=== PATIENT | female | born 1970 | race Caucasian/White ===

== ENCOUNTER 2018-07-31 16:25 | Emergency (ER) | payer MEDICAID ==
[2018-07-31] MEDS ORDERED: HYDROcod/ACETAM 5/325 MG TABLET PO STA (18:04)
[2018-07-31] MEDS ORDERED: CYCLOBENZAPRINE 10 MG TABLET PO STA (18:04)
[2018-07-31] MEDS ORDERED: DEXAMETHASONE 10 MG/ML VIAL PO STA (18:04)
--- NOTE | 2018-07-31 18:07 | ED Physician Documentation ---
History of Present Illness - Stated complaint Stated Complaint: EAR/NECK/JAW PX - Chief complaint Chief Complaint: Heent - History obtained from History obtained from: Patient - History of Present Illness Timing: Other (4 months) Pain level max: 9 Pain level now: 9 Improved by: rest Worsened by: movement - Additonal information Additional information: Patient is a 48-year-old female with a history of TMJ who has had increasing pain over the past 4 months. Is not using a night clerk. Recently moved to the [place] but has not yet seen a PCP or dentist. She is taking Motrin at home but the pain has increased. No fevers. No vomiting. Worse with eating and movement. Better with rest Review of Systems Constitutional: denies: Fever, Chills Ears: denies: Ear pain Nose: denies: Rhinorrhea / runny nose, Congestion Throat: denies: Sore throat Cardiac: denies: Chest pain / pressure Respiratory: denies: Cough GI: denies: Abdominal Pain, Nausea, Vomiting, Diarrhea Skin: denies: Rash Musculoskeletal: denies: Neck pain, Back pain Neurologic: denies: Headache PD PAST MEDICAL HISTORY - Past Medical History Past Medical History: Yes HEENT: Other (TMJ) - Present Medications Home Medications: Ambulatory Orders Medication Instructions Recorded Confirmed Cyclobenzaprine [Flexeril] 10 mg PO TID PRN #20 tablet 07/31/18 Hydrocodone/Acetaminophen 1 - 2 each PO Q6H PRN #14 tablet 07/31/18 [Hydrocodon-Acetaminophen 5-325] Meloxicam [Mobic] 15 mg PO DAILY PRN #20 tablet 07/31/18 predniSONE [Deltasone] 10 mg PO [id number] #42 tab 07/31/18 - Allergies Allergies/Adverse Reactions: Allergies Allergy/AdvReac Type Severity Reaction Status Date / Time morphine Allergy Anaphylaxis Verified 07/31/18 16:48 - Living Situation Living Situation: reports: With family Living Arrangement: reports: At home - Social History Does the pt have substance abuse?: Yes Substance Use and Type: Marijuana - Family History Family history: reports: Non contributory PD ED PE NORMAL - Vitals Vital signs reviewed: Yes - General General: Alert and oriented X 3, No acute distress - HEENT HEENT: Moist mucous membranes, Dentition benign, Other (Tender palpation over the right TMJ joint. Crepitus with movement. There is swelling over the joint.) - Neck Neck: Supple, no meningeal sign - Cardiac Cardiac: RRR, Strong equal pulses - Respiratory Respiratory: No respiratory distress, Clear bilaterally - Derm Derm: Warm and dry - Neuro Neuro: Alert and oriented X 3 Results - Vitals Vitals: Vital Signs - 24 hr 07/31/18 07/31/18 16:40 18:31 Temperature 36 C L 36.9 C Heart Rate 62 81 Respiratory 16 12 Rate Blood Pressure 131/82 H 140/89 H O2 Saturation 97 97 Oxygen O2 Source Room air PD MEDICAL DECISION MAKING - ED course Complexity details: considered differential, d/w patient ED course: Patient is a 48-year-old female with TMJ syndrome. Recommend that she wear a night clerk at night to help with teeth grinding. Also prescribe a small amount of pain medication and a muscle relaxant for her jaw for the next few days. We will have her follow-up with her doctor for further care. Patient counseled regarding signs and symptoms for which I believe and urgent re-evaluation would be necessary. Patient with good understanding of and agreement to plan and is comfortable going home at this time This document was made in part using voice recognition software. While efforts are made to proofread this document, sound alike and grammatical errors may occur. Departure - Departure Disposition: 01 Home, Self Care Clinical Impression: TMJ syndrome Condition: Good Instructions: ED TMJ Syndrome Follow-Up: VAHID OLIVAS ARNP [Primary Care Provider] - Within 1 week Prescriptions: Cyclobenzaprine [Flexeril] 10 mg PO TID PRN #20 tablet PRN Reason: Spasms Hydrocodone/Acetaminophen [Hydrocodon-Acetaminophen 5-325] 1 - 2 each PO Q6H PRN #14 tablet PRN Reason: pain Meloxicam [Mobic] 15 mg PO DAILY PRN #20 tablet PRN Reason: pain predniSONE [Deltasone] 10 mg PO [id number] #42 tab Comments: Return if you worsen. Take the medications as prescribed. You should also obtain a night clerk to wear at night as this will help to prevent the grinding of the teeth and prevent the spasming of your muscles. Follow-up with the dentist for further evaluation Do not drink alcohol or drive while on narcotic pain medicine. Note that many narcotic pain relievers also contain tylenol/acetaminophen. Please ensure that your total dose of acetaminophen from all sources does not exceed 3 grams (3000mg) per day. You may constipated on this medication, take a stool softener such as "Colace" twice a day while you are on it. Also recommend a [id number] laxative such as senna or MiraLAX any day that you do not have a bowel movement. If you received narcotic pain medication in the emergency department, do not drive or operate machinery for the next 24 hours. Discharge Date/Time: 07/31/18 18:35
[2018-07-31 18:33] VITALS: BP 140/89
== END 2018-07-31 18:35 | disposition home or self-care (01) ==
LOC: ED 16:25
DX: M26.609 Unspecified temporomandibular joint disorder, unspecified side (principal)
CPT/HCPCS: 99283; A9270

== ENCOUNTER 2018-08-24 13:36 | Emergency (ER) | payer MEDICAID ==
[2018-08-24 14:03] VITALS: BP 120/75
--- NOTE | 2018-08-24 14:51 | ED Physician Documentation ---
PD HPI HEENT - Stated complaint Stated Complaint: R JAW PAIN - Chief complaint Chief Complaint: Heent - History obtained from History obtained from: Patient - History of Present Illness Timing - onset: How many days ago (2-3) Timing - duration: Days (2-3) Timing - details: Gradual onset, Still present Location: Right ear, Other (right TMJ area, side of face, around ear. Has red area that is tender behind the right ear.) Associated symptoms: Congestion. No: Fever, Facial swelling Recently seen: Emergency Dept (month or so ago, with similar. symptoms recurrent.) Review of Systems Constitutional: denies: Fever, Chills Eyes: denies: Decreased vision, Photophobia Nose: denies: Rhinorrhea / runny nose, Congestion Throat: denies: Sore throat Respiratory: denies: Cough Skin: denies: Rash, Lesions Neurologic: denies: Focal weakness, Numbness, Confused, Altered mental status PD PAST MEDICAL HISTORY - Past Medical History Cardiovascular: None Respiratory: None Neuro: None Endocrine/Autoimmune: None GI: None PROFESSOR OF PRACTICE: None : None HEENT: Other (TMJ) Psych: None Musculoskeletal: Other Derm: None - Past Surgical History Past Surgical History: Yes Ortho: Other - Present Medications Home Medications: Ambulatory Orders Medication Instructions Recorded Confirmed Cyclobenzaprine [Flexeril] 10 mg PO TID PRN #20 tablet 07/31/18 Hydrocodone/Acetaminophen 1 - 2 each PO Q6H PRN #14 tablet 07/31/18 [Hydrocodon-Acetaminophen 5-325] Meloxicam [Mobic] 15 mg PO DAILY PRN #20 tablet 07/31/18 predniSONE [Deltasone] 10 mg PO [id number] #42 tab 07/31/18 Acyclovir 400 mg PO 5XD #25 tablet 08/24/18 Cyclobenzaprine [Flexeril] 10 mg PO TID PRN #20 tablet 08/24/18 Dexamethasone [Decadron] 4 mg PO DAILY #5 tablet 08/24/18 Hydrocodone/Acetaminophen [[place] 1 each PO Q6H PRN #15 tablet 08/24/18 5-325 Tablet] - Allergies Allergies/Adverse Reactions: Allergies Allergy/AdvReac Type Severity Reaction Status Date / Time morphine Allergy Anaphylaxis Verified 08/24/18 14:03 - Social History Does the pt smoke?: No Smoking Status: Never smoker Does the pt drink ETOH?: No Does the pt have substance abuse?: Yes - Immunizations Immunizations are current?: Yes - POLST Patient has POLST: No PD ED PE NORMAL - Vitals Vital signs reviewed: Yes - General General: Alert and oriented X 3, No acute distress, Well developed/nourished - HEENT HEENT: PERRL, EOMI, Ears normal, Moist mucous membranes, Pharynx benign, Dentition benign, Other (has tenderness of the face and skin around the cheek, side of face, and to the area around the ear. No rash nor sores. The TMJ is tender without swelling. ) - Neck Neck: Supple, no meningeal sign, No adenopathy - Cardiac Cardiac: RRR, No murmur - Respiratory Respiratory: Clear bilaterally - Derm Derm: Normal color, Warm and dry, No rash Results - Vitals Vitals: Oxygen O2 Source Room air PD MEDICAL DECISION MAKING - ED course Complexity details: considered differential (some symptoms to suggest early shingles, though she says she had the shingles shot. ), d/w patient Departure - Departure Disposition: 01 Home, Self Care Clinical Impression: Facial pain, acute Condition: Stable Record reviewed to determine appropriate education?: Yes Instructions: ED TMJ Syndrome Follow-Up: VAHID OLIVAS ARNP [Primary Care Provider] - Prescriptions: Acyclovir 400 mg PO 5XD #25 tablet Cyclobenzaprine [Flexeril] 10 mg PO TID PRN #20 tablet PRN Reason: Spasms Dexamethasone [Decadron] 4 mg PO DAILY #5 tablet Hydrocodone/Acetaminophen [[place] 5-325 Tablet] 1 each PO Q6H PRN #15 tablet PRN Reason: Pain Comments: Your TMJ is certainly tender and so that can be giving a lot of the pain and have you treated with anti-inflammatory as well as muscle relaxant and to that add Tylenol or hydrocodone as needed for the pain. He also have skin sensitivity and pain over the side of the face and around the ear and neck with the redness area behind the ear has me concern for early shingles in addition and I would have you take acyclovir antiviral and see how the course goes over the next couple of days. In particular see if you develop more red spots or any blistering. Discharge Date/Time: 08/24/18 15:27
[2018-08-24] MEDS ORDERED: HYDROcod/ACETAM 5/325 MG TABLET PO STA (15:14)
[2018-08-24] MEDS ORDERED: CYCLOBENZAPRINE 10 MG TABLET PO STA (15:14)
[2018-08-24] MEDS ORDERED: DEXAMETHASONE 10 MG/ML VIAL PO STA (15:14)
== END 2018-08-24 15:27 | disposition home or self-care (01) ==
LOC: ED 13:36
DX: M26.621 Arthralgia of right temporomandibular joint (principal)
CPT/HCPCS: 99283; A9270

== ENCOUNTER 2018-10-22 11:42 | Emergency (ER) | payer MEDICAID ==
--- NOTE | 2018-10-22 12:39 | ED Physician Documentation ---
PD HPI URI - Stated complaint Stated Complaint: CONGESTION/GREEN MUCUS - Chief complaint Chief Complaint: Resp - History obtained from History obtained from: Patient - History of Present Illness Timing - onset: How many weeks ago (1 week or more of greenish sinus drainage and frontal/right maxillary pressure. Has pain at right TMJ area. Now also with cough productive, with feeling of chest tightness and wheezing. Dyspnea earlier today, improved with MDI but is now out of MDI. Had that Rx with a pneumonia last month.) Timing duration: Weeks (1-2) Timing details: Gradual onset, Still present Associated symptoms: Nasal congestion, Sinus pain, Productive cough. No: Fever Contributing factors: No: Sick contact Recently seen: Clinic (last month and Dx with pneumonia, improved with meds, and then developed sinus symptoms and now cough again.) Review of Systems Constitutional: reports: Myalgias. denies: Fever, Chills Ears: reports: Ear pain (at right TMJ area and not ear canal) Nose: reports: Congestion, Sinus pressure / pain. 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 : None HEENT: Other Psych: None Musculoskeletal: Other Derm: None - Past Surgical History Past Surgical History: Yes Ortho: Other - Present Medications Home Medications: Ambulatory Orders Medication Instructions Recorded Confirmed Cyclobenzaprine [Flexeril] 10 mg PO TID PRN #20 tablet 07/31/18 Meloxicam [Mobic] 15 mg PO DAILY PRN #20 tablet 07/31/18 Lidocaine Viscous 2% [Xylocaine 2 drops RIGHTEAR Q4H PRN #15 ml 10/05/18 Viscous 2%] Albuterol Sulf [Ventolin Hfa 2 - 3 puffs INH Q4HR PRN #1 inhaler 10/22/18 Inhaler] Dexamethasone [Decadron] 4 mg PO DAILY #5 tablet 10/22/18 Doxycycline Hyclate 100 mg PO BID #20 capsule 10/22/18 - Allergies Allergies/Adverse Reactions: Allergies Allergy/AdvReac Type Severity Reaction Status Date / Time morphine Allergy Anaphylaxis Verified 10/22/18 12:05 - Social History Does the pt smoke?: No Smoking Status: Never smoker Does the pt drink ETOH?: No Does the pt have substance abuse?: Yes - Immunizations Immunizations are current?: Yes - POLST Patient has POLST: No PD ED PE NORMAL - Vitals Vital signs reviewed: Yes - General General: Alert and oriented X 3, No acute distress, Well developed/nourished - HEENT HEENT: Ears normal, Moist mucous membranes, Pharynx benign - Neck Neck: Supple, no meningeal sign, No adenopathy - Cardiac Cardiac: RRR, No murmur - Respiratory Respiratory: No: Clear bilaterally (some scattered central wheezing. no coarse sounds. ) - Abdomen Abdomen: Soft, Non tender - Derm Derm: Normal color, Warm and dry, No rash - Neuro Neuro: Alert and oriented X 3, No motor deficit, Normal speech Results - Vitals Vitals: Vital Signs - 24 hr 10/22/18 10/22/18 13:20 13:47 Heart Rate 97 103 H Respiratory 18 18 Rate Blood Pressure 130/78 O2 Saturation 99 Oxygen O2 Source Room air - Rads (name of study) chest xray Radiology: Prelim report reviewed (no infiltrates), EMP read contemporaneously, See rad report PD MEDICAL DECISION MAKING - ED course Complexity details: considered differential (consider viral, but has had progressive sinus drainage with pressure, and now productive cough. So hard to say not bacterial. ), d/w patient Departure - Departure Disposition: 01 Home, Self Care Clinical Impression: Acute sinusitis Qualifiers: Sinusitis location: frontal Recurrence: non-recurrent Qualified Code(s): J01.10 - Acute frontal sinusitis, unspecified Acute bronchitis Qualifiers: Bronchitis organism: unspecified organism Qualified Code(s): J20.9 - Acute bronchitis, unspecified Condition: Stable Record reviewed to determine appropriate education?: Yes Instructions: ED Bronchitis Asthmatic, ED Sinusitis Abx Tx Follow-Up: VAHID OLIVAS ARNP [Primary Care Provider] - Prescriptions: Albuterol Sulf [Ventolin Hfa Inhaler] 2 - 3 puffs INH Q4HR PRN #1 inhaler PRN Reason: Shortness Of Air/Wheezing Dexamethasone [Decadron] 4 mg PO DAILY #5 tablet Doxycycline Hyclate 100 mg PO BID #20 capsule Comments: Your chest x-ray appears normal without any pneumonia. Presume he have a bronchial as well as sinus infection. This can likely still be viral or inflammatory but we can treat it as a bacterial infection. Use doxycycline twice daily as directed. Decadron steroid for inflammation will help decrease symptoms as well. Use the albuterol inhaler 2-3 puffs 4 times a day for the next 7-10 days and extra times as needed. Stay well-hydrated. Continue other usual medicines. Recheck if not improving over the next few days. Discharge Date/Time: 10/22/18 13:47
[2018-10-22] MEDS ORDERED: ALBUTEROL NEB 2.5 MG/3 ML INH STA (13:04)
[2018-10-22] MEDS ORDERED: DEXAMETHASONE 10 MG/ML VIAL PO STA (13:05)
[2018-10-22] MEDS ORDERED: DOXYCYCLINE 100 MG TABLET PO STA (13:05)
--- NOTE | 2018-10-22 13:14 | XRAY Report ---
Reason: cough Procedure Date: 10/22/2018 Accession Number: [id number] / [id number] Procedure: XR - Chest 2 View X-Ray CPT Code: 46142 FULL RESULT: EXAM: CHEST RADIOGRAPHY EXAM DATE: 10/22/2018 12:55 PM. CLINICAL HISTORY: Cough. COMPARISON: None. TECHNIQUE: 2 views. FINDINGS: Lungs/Pleura: No focal opacities evident. No pleural effusion. No pneumothorax. Normal volumes. Mediastinum: Heart and mediastinal contours are unremarkable. Other: None. IMPRESSION: No acute cardiopulmonary abnormality. RADIA
[2018-10-22 13:49] VITALS: BP 130/78
== END 2018-10-22 13:47 | disposition home or self-care (01) ==
LOC: ED 11:42
DX: J01.10 Acute frontal sinusitis, unspecified (principal); J02.9 Acute pharyngitis, unspecified
CPT/HCPCS: 71046; 94640; 99283; A9270

== ENCOUNTER 2019-01-19 09:20 | Outpatient (CLI) | payer MEDICAID ==
--- NOTE | 2019-01-19 15:04 | XRAY Report ---
Reason: NECK PAIN,CHRONIC Procedure Date: 01/19/2019 Accession Number: [id number] / [id number] Procedure: XR - Cervical Spine 2 View CPT Code: FULL RESULT: EXAM: CERVICAL SPINE RADIOGRAPHY EXAM DATE: 01/19/2019 09:49 AM. CLINICAL HISTORY: Neck pain, chronic. COMPARISONS: None. TECHNIQUE: 3 views. FINDINGS: Alignment: Straightening of the normal cervical lordosis. No spondylolisthesis or scoliosis. Bones: The cervical vertebral bodies and posterior elements are well visualized from the skull base through C7-T1. No fractures or bone lesions. Disks: Mild degenerative disk disease pronounced at C5-C7 with mild marginal osteophytosis. Facets: Mild facet arthropathy predominantly in the lower cervical spine. Soft Tissues: Normal. No prevertebral soft tissue swelling. The visualized lung apices are clear. IMPRESSION: Mild degenerative changes. Straightening of the normal cervical lordosis is possibly positional. RADIA
== END 2019-01-19 09:21 | disposition home or self-care (01) ==
LOC: DI 09:20
PROVIDERS: ATTEND Registered Nurse
DX: M50.322 Other cervical disc degeneration at C5-C6 level (principal); M25.78 Osteophyte, vertebrae
CPT/HCPCS: 72040

== ENCOUNTER 2019-03-11 15:17 | Outpatient (CLI) | payer MEDICAID ==
--- NOTE | 2019-03-12 13:54 | MRI Report ---
Reason: SHOULDER PAIN, RIGHT Procedure Date: 03/11/2019 Accession Number: [id number] / [id number] Procedure: MRI - Shoulder RT W/O CPT Code: FULL RESULT: EXAM: RIGHT SHOULDER MRI WITHOUT CONTRAST EXAM DATE: 03/11/2019 04:11 PM. CLINICAL HISTORY: Right shoulder pain and limited range of motion. COMPARISON: SHOULDER 3 VIEW RT 03/04/2019 8:42 AM. TECHNIQUE: Multiplanar, multisequence T1-weighted and fluid-sensitive sequences of the shoulder without contrast. Other: None. FINDINGS: Acromioclavicular Region: The acromion is type II. Cortical irregularity, subcortical cyst, and marrow edema at the distal end of the clavicle and medial aspect of the acromion. The inferior aspect of the AC joint indents the bursal surface of the supraspinatus muscle tendon unit. The coracoacromial and coracoclavicular ligaments are intact. No subacromial/subdeltoid bursal fluid. Glenohumeral Region: No subluxation. No effusion or loose bodies. The articular cartilage is unremarkable. The glenohumeral ligaments and joint capsule are unremarkable. Bone Marrow: No acute fracture or bone lesions. Labrum: The labrum is unremarkable on this nonarthrographic study. Musculature/Rotator Cuff: There is supraspinatus tendinosis. There is an approximately 0.4 cm AP by 1.1 cm proximal to distal low-grade partial-thickness intrasubstance insertional tear at the distal end of the infraspinatus tendon. Teres minor and subscapularis tendons are unremarkable. No edema or fatty atrophy. Biceps Tendon: The long head of the biceps tendon and biceps teresa are intact. Other: The subcutaneous tissues are unremarkable. IMPRESSION: 1. Supraspinatus tendinosis. Low-grade partial-thickness intrasubstance insertional tear at the distal end of the subscapularis tendon. 2. Moderate acromioclavicular joint osteoarthritis. RADIA
== END 2019-03-11 15:18 | disposition home or self-care (01) ==
LOC: DI 15:17
PROVIDERS: ATTEND Orthopaedic Surgery Sports Medicine
DX: M75.101 Unspecified rotator cuff tear or rupture of right shoulder, not specified as traumatic (principal); M19.011 Primary osteoarthritis, right shoulder

== ENCOUNTER 2019-03-24 09:05 | Outpatient (CLI) | payer MEDICAID ==
[2019-03-24 18:17] LABS: THYROID STIMULATING HORMONE 0.78 uIU/mL (0.34-5.60)
[2019-03-24 18:19] LABS: FREE T4 (FREE THYROXINE) 0.87 ng/dL (0.58-1.64)
== END 2019-03-24 09:06 | disposition home or self-care (01) ==
LOC: LAB.F 09:05
PROVIDERS: ATTEND Physician Assistant Medical
DX: R53.83 Other fatigue (principal); F41.8 Other specified anxiety disorders
CPT/HCPCS: 36415; 84439; 84443; 84481; 86376; 86800

== ENCOUNTER 2019-04-09 10:06 | Outpatient (CLI) | payer MEDICAID ==
[2019-04-12 13:35] LABS: ANA SCREEN NEGATIVE (NEGATIVE)
== END 2019-04-09 10:07 | disposition home or self-care (01) ==
LOC: LAB.F 10:06
PROVIDERS: ATTEND Naturopath
DX: M79.10 Myalgia, unspecified site (principal)
CPT/HCPCS: 36415; 83090; 85651; 86038; 86141

== ENCOUNTER 2019-04-13 08:50 | Outpatient (CLI) | payer MEDICAID ==
--- NOTE | 2019-04-13 14:34 | DEXA Report ---
Reason: MULTIPLE FRACTURES OR RIBS,UNSPECIFIED SIDE,SUBSEQ Procedure Date: 04/13/2019 Accession Number: [id number] / [id number] Procedure: DEX - Dexa Spine and/or Hip CPT Code: FULL RESULT: EXAM: Dexa Spine and/or Hip DATE: 04/13/2019 9:25 AM CLINICAL HISTORY: MULTIPLE FRACTURES OR RIBS,UNSPECIFIED SIDE,SUBSEQ TECHNIQUE: Dual energy x-ray absorptiometry (DXA) was performed on a [employer] System. Regions measured are the AP Spine, femoral neck, and if needed forearm. COMPARISON: None. In accordance with the International Society for Clinical Densitometry (ISCD) guidelines, data from previous exams may be reanalyzed using current recommendations and techniques. This is done to allow a more accurate basis for comparison with the current study. FINDINGS: The data for the lumbar spine is as follows: BMD (g/cm/cm) T-SCORE Z-SCORE REGION L1 0.964 -1.4 -1.0 L2 1.125 -0.6 -0.2 L3 1.212 0.1 0.5 L4 1.081 -1.0 -0.6 TOTAL 1.101 -0.7 -0.3 NOTE: All evaluable vertebrae are used for classification The data for the hip is as follows: BMD (g/cm/cm) T-SCORE Z-SCORE REGION Neck 0.906 -0.9 -0.2 TOTAL 0.865 -1.1 -0.6 NOTE: The femoral neck or total proximal femur, whichever is lowest, is used for classification. IMPRESSION: THE WHO CLASSIFICATION BASED ON THE INTERNATIONAL REFERENCE STANDARD IS OSTEOPENIA, REFERENCE TOTAL LEFT HIP. THE FRACTURE RISK IS INCREASED. RECOMMENDATION: Patients with diagnosis of osteoporosis or osteopenia should have regular bone mineral density assessment. For those eligible for Medicare, routine testing is allowed once every 2 years. Testing frequency can be increased for patients who have rapidly progressing disease or for those who are receiving medical therapy to restore bone mass. COMMENT: World Health Organization (WHO) definitions for osteoporosis and osteopenia: NORMAL BMD: T-score at -1.0 or higher, fracture risk is low OSTEOPENIA BMD: T-score between -1.0 and -2.5, fracture risk is increased. OSTEOPOROSIS BMD: T-score at -2.5 or lower, fracture risk is high. National Osteoporosis Foundation recommends: 1. Obtain adequate dietary calcium (at least 1200 mg per day) and vitamin D (400-800 international units per day). 2. Participate, as appropriate, in regular weightbearing and muscle-strengthening exercise. 3. Avoid tobacco use and reduce alcohol and caffeine intake. 4. For more detailed information see the website at www.NOF.org.
== END 2019-04-13 08:51 | disposition home or self-care (01) ==
LOC: DI 08:50
PROVIDERS: ATTEND Physician Assistant Medical
DX: M85.88 Other specified disorders of bone density and structure, other site (principal)
CPT/HCPCS: 77080

== ENCOUNTER 2019-05-31 06:17 | Day surgery (SDC) | payer MEDICAID ==
[2019-05-31] MEDS ORDERED: CEFAZOLIN SODIUM IN 0.9 % NACL 2 GM/100 ML BAG IV ONE (06:31)
[2019-05-31 06:57] LABS: HCG UR QUAL NEGATIVE
[2019-05-31] MEDS ORDERED: LACTATED RINGERS 1,000 ML IV ONE ×3 (07:02→12:30)
[2019-05-31] MEDS ORDERED: BACITRACIN OINT TOP ONE (07:12)
[2019-05-31] MEDS ORDERED: LIDOCAINE MPF 2%-EPI 1:200000 20 ML VIAL ONE (07:13)
[2019-05-31] MEDS ORDERED: CHLORHEXIDINE GLUCONATE 15 ML UDC PO ONE ×2 (07:17→09:52)
[2019-05-31] MEDS ORDERED: DEXAMETHASONE 4 MG/ML VIAL ONE (07:18)
[2019-05-31] MEDS ORDERED: OXYMETAZOLINE HCL 100 SPRAYS BOTTLE NAS ONE (07:18)
--- NOTE | 2019-05-31 07:30 | ANESTHESIA ---
Pre-Anesthesia VS, & Labs - Diagnosis Right jaw internal derangement - Procedure ORIF right jaw Vital Signs: Temp Pulse Resp BP Pulse Ox 36.3 C L 79 16 115/70 99 05/31/19 06:36 05/31/19 06:36 05/31/19 06:36 05/31/19 06:36 05/31/19 06:36 Height 5 ft 7 in Weight (kg) 63.5 kg Body Mass Index 19.8 - NPO Other (8 oz coffee at 0500, 4 oz water at 0600) - Is Patient ?: No - Lab Results Lab results reviewed: Yes Home Medications and Allergies Home Medications: Ambulatory Orders Albuterol Sulfate [Proair Hfa Inhaler] 1 - 2 puffs INH Q4H PRN 05/26/19 Albuterol Sulfate [Proair Hfa Inhaler] 1 - 2 puffs INH Q4H PRN 05/26/19 Allergies/Adverse Reactions: Allergies Allergy/AdvReac Type Severity Reaction Status Date / Time morphine Allergy Anaphylaxis Verified 10/22/18 12:05 Anes History & Medical History - Anesthetic History Anesthesia Complications: reports: No previous complications Family history of Anesthesia Complications: Denies Family history of Malignant Hyperthermia: Denies - Medical History Cardiovascular: reports: None, Arrhythmia Pulmonary: reports: Pneumonia, Other Gastrointestinal: reports: None, Other (hx nausea/vomiting) Urinary: reports: None Neuro: reports: None Musculoskeletal: reports: Osteoarthritis, Other Endocrine/Autoimmune: reports: None Blood Disorders: reports: None Skin: reports: None Smoking Status: Never smoker Psychosocial: reports: No issues indicated - Surgical History Orthopedic: Arthroscopic surgery, Other Exam General: Alert, Oriented x3, Cooperative Dental: WNL Mouth Opening: Greater than 4 Fingerbreadths Neck Mobility: Normal Mallampati classification: I Thyromental Distance: greater than 6 cm Respiratory: Lungs clear Cardiovascular: Regular rate Neurological: Normal speech Mental/Cognitive Status: Alert/Oriented X3 Cognitive Status: Within normal limits Plan Anesthesia Type: General Consent for Procedure(s) Verified and Reviewed: Yes Code Status: Attempt Resuscitation ASA classification: 2-Mild systemic disease Is this case an emergency?: No
[2019-05-31] MEDS ORDERED: FLUOCINONIDE 0.05% CREAM 15 GM TUBE TOP ONE (09:30)
[2019-05-31] MEDS ORDERED: DEXAMETHASONE 4 MG/ML VIAL IVP ONE (09:44)
[2019-05-31] MEDS ORDERED: LIDOCAINE-MPF 2% 5 ML VIAL IM ONE (09:44)
[2019-05-31] MEDS ORDERED: fentaNYL 250 MCG/5 ML VIAL IVP ONE (09:44)
[2019-05-31] MEDS ORDERED: KETOROLAC 30 MG/ML VIAL IVP ONE (09:44)
[2019-05-31] MEDS ORDERED: ROCURONIUM 50 MG/5 ML VIAL IVP ONE (09:44)
[2019-05-31] MEDS ORDERED: ACETAMINOPHEN 1,000 MG/100 ML 100 ML IV ONE (09:44)
[2019-05-31] MEDS ORDERED: ONDANSETRON 4 MG/2 ML VIAL IVP ONE (09:44)
[2019-05-31] MEDS ORDERED: MIDAZOLAM 2 MG/2 ML VIAL IVP ONE (09:44)
[2019-05-31] MEDS ORDERED: PROPOFOL 200 MG/20 ML VIAL IVP ONE (09:44)
[2019-05-31] MEDS ORDERED: LIDOCAINE MPF 2%-EPI 1:200000 20 ML VIAL SUBQ ONE ×2 (09:52)
[2019-05-31] MEDS: fentaNYL 100 MCG/2 ML VIAL ONE ×2 (12:00→12:05)
[2019-05-31] MEDS: HYDROmorphone 0.5 MG/0.5 ML SYRINGE ONE ×2 (12:19→12:24)
[2019-05-31] MEDS ORDERED: HYDROmorphone 0.5 MG/0.5 ML SYRINGE ONE ×2 (12:36→13:08)
[2019-05-31] MEDS ORDERED: HYDROmorphone 1 MG/ML CARPUJECT IVP PRN (12:52)
[2019-05-31] MEDS ORDERED: oxyCODONE 10 MG/0.5 ML SYRINGE PO PRN (12:52)
[2019-05-31] MEDS ORDERED: ONDANSETRON 4 MG/2 ML VIAL ONE (13:51)
[2019-05-31 14:21] VITALS: BP 121/79
--- NOTE | 2019-05-31 15:57 | OPERATIVE REPORT ---
DATE OF SERVICE: 05/31/2019 Physician: Robi Serrano DDS PROCEDURE PERFORMED: Modified condylotomy of the right mandibular condyle with placement of arch bars. PREOPERATIVE DIAGNOSES 1. Right mandible pain. 2. 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 3. Capsulitis of the right temporomandibular joint. POSTOPERATIVE DIAGNOSES 1. Right mandible pain. 2. 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 3. Capsulitis of the right temporomandibular joint. PRIMARY SURGEON: Robi Serrano DDS SCHOOL PRINCIPAL: [employer]. ANESTHESIA TYPE: General anesthesia via nasoendotracheal intubation. ESTIMATED BLOOD LOSS: 40 mL. COMPLICATIONS: None. IMPLANTS: Superficial implants were placed only. Biomet implants were used. Hybrid IMF bars x2 were placed and 9 IMF screws were placed. DRAINS, PACKS, CATHETERS: None. IV FLUIDS: Per anesthesia records. INDICATIONS FOR PROCEDURE: Patient is a 49-year-old female who has a longstanding temporomandibular joint pain. The pain has been causing difficulty eating and difficulty speaking. She presented to my office for clinical and radiographic evaluation which was consistent with right temporomandibular joint internal derangement and capsulitis. It was decided that a modified condylotomy was indicated. The risks, benefits and alternatives of this plan were discussed with Patient including pain, swelling, bleeding, infection, worsening of her TMJ symptoms, numbness in the right V3 distribution, scarring, malocclusion, nonunion, hardware failure, damage to the teeth, need for further surgery. Adequate time was given to answer all questions and informed consent was obtained. DESCRIPTION OF PROCEDURE: Patient was brought to the main operating room and placed in a supine position on the operating table. General anesthesia was induced by the anesthesia team, and the airway was secured with an nasoendotracheal tube. All pressure points were padded and checked. Lacri-Lube was placed in the eyes. The eyes were protected with Tegaderms. Patient was prepped and draped in the standard sterile fashion for an intraoral surgical procedure. The nasal LEO was secured to the forehead in the standard fashion. A formal timeout was executed. Local anesthesia was achieved with 2% lidocaine with 1:200,000 epinephrine x7 mL The attention was directed to the maxilla. A throat pack was placed. A maxillary hybrid arch bar was fashioned to the maxilla and then secured into place with 5 hybrid IMF screws. Attention was directed to the mandible. A hybrid arch bar was fashion to the mandible and secured in place with 4 hybrid IMF screws. Attention was then directed to the right mandibular ramus. A bite block was placed. Using a 15 blade, an incision was made along the anterior aspect of the right mandibular ramus down to bone. Electrocautery was used for hemostasis. A #9 periosteal elevator was used to perform a subperiosteal dissection on the lateral aspect of the mandible, exposing the entire lateral ramus up to the coronoid notch and down to the inferior border of the mandible. A nerve hook was used to verify the position of the coronoid notch. Mandibular ramus retractor was placed in the coronoid notch, and good visibility of the lateral aspect of the mandible was achieved. The mandible was very convex and because of this the posterior border of the mandible was never able to be visualized. Instead of visualizing it, it was necessary to use a nerve hook to feel the posterior border of the mandible and feel where it dropped off and then estimate the desired osteotomy position based on this. An oscillating saw was used to make an osteotomy from the coronoid notch down to the inferior border of the mandible. The osteotomy was made with great care to protect the inferior alveolar nerve by staying far enough posterior; also, with care taken to avoid stepping off the posterior aspect of the mandible. Once this was achieved, the proximal segment was found to be mobile. The proximal segment was then loosened further by using a J stripper and a #1 periosteal elevator to remove the entire masseter muscle from the segment and remove about half of the medial pterygoid muscle from the segment. Sag of the condyle was appreciated. 5 mm of the inferior tip of the proximal segment was removed with rongeur, and the bone was smoothed with a bone file. The mobility of the segment was again verified, and patient's occlusion was found to be unstable. This site was irrigated copiously. The incision was closed with 4-0 Vicryl suture, interrupted and running. Patient's mouth was cleansed and suctioned. The throat pack was removed. An orogastric tube was passed. Patient's occlusion was reestablished, and elastics were used to hold patient in good occlusion. Care of Patient was then returned to the anesthesia team. Patient was extubated. She was found to be in stable condition, and she was left in the PACU in stable condition. TD: 05/31/2019 12:02 MTDD
== END 2019-05-31 06:18 | disposition home or self-care (01) ==
LOC: SDS 06:17
PROVIDERS: ATTEND Dentist Oral and Maxillofacial Surgery
PROC: 0NST04Z Reposition Right Mandible with Internal Fixation Device, Open Approach (ICD-10-PCS; principal; 2019-05-31 07:30)
DX: M26.601 Right temporomandibular joint disorder, unspecified (principal); M77.9 Enthesopathy, unspecified; Z86.79 Personal history of other diseases of the circulatory system
CPT/HCPCS: 21110; 21193; 81025; A9270; C1713; J0131; J0690; J1170; J3010; J3490; J7120

== ENCOUNTER 2020-06-15 09:59 | Observation (INO) | payer MEDICAID ==
[2020-06-15] MEDS ORDERED: SODIUM CHLORIDE 0.9% 1,000 ML IV STA (10:21)
[2020-06-15] MEDS ORDERED: ONDANSETRON 4 MG/2 ML VIAL IVP STA ×2 (10:21→13:40)
[2020-06-15] MEDS ORDERED: fentaNYL 100 MCG/2 ML VIAL IVP STA (10:22)
[2020-06-15 10:53] LABS: BASOPHILS % (AUTO) 0.3 %; EOSINOPHILS % (AUTO) 0.1 %; HGB - HEMOGLOBIN 14.8 g/dL (12.0-16.0); LYMPHOCYTES # (AUTO) 0.8 10^3/uL (1.5-3.5); LYMPHOCYTES % (AUTO) 10.2 %; MEAN CORPUSCULAR HEMOGLOBIN 31.1 pg (27.0-31.0); MEAN CORPUSCULAR HGB CONC 34.2 g/dL (32.0-36.0); MEAN PLATELET VOLUME 10.2 fL (7.9-10.8); MONOCYTES # (AUTO) 0.3 10^3/uL (0.0-1.0); MONOCYTES % (AUTO) 3.4 %; NEUTROPHILS # (AUTO) 6.6 10^3/uL (1.5-6.6); NEUTROPHILS % (AUTO) 85.5 %; PLT - PLATELET COUNT 264 10^3/uL (130-450); RED BLOOD COUNT 4.76 10^6/uL (4.20-5.40); RED CELL DISTRIBUTION WIDTH 12.5 % (12.0-15.0); WHITE BLOOD COUNT 7.8 x10^3/uL (4.8-10.8)
[2020-06-15 11:01] LABS: INR 1.1 (0.8-1.2); PT - PROTHROMBIN TIME 12.1 secs (9.9-12.6)
[2020-06-15 11:08] LABS: ALBUMIN 4.5 g/dL (3.2-5.5); ALBUMIN/GLOBULIN RATIO 1.4 (1.0-2.2); BILIRUBIN,TOTAL 0.9 mg/dL (0.2-1.0); CALCIUM 9.5 mg/dL (8.5-10.3); CREATININE 0.7 mg/dL (0.4-1.0); TOTAL PROTEIN 7.8 g/dL (6.7-8.2)
[2020-06-15 11:14] LABS: BILIRUBIN,URINE NEGATIVE (NEGATIVE); GLUCOSE, URINE (UA) NEGATIVE (NEGATIVE); KETONES,URINE (UA) 40 mg/dL (NEGATIVE); LEUKOCYTE ESTERASE, URINE NEGATIVE (NEGATIVE); NITRITE,URINE NEGATIVE (NEGATIVE); OCCULT BLOOD,URINE NEGATIVE (NEGATIVE); PH,URINE >=9.0 PH (5.0-7.5); PROTEIN,URINE TRACE mg/dL (NEGATIVE); UROBILINOGEN,URINE 0.2 (NORMAL) E.U./dL (NORMAL)
[2020-06-15 11:16] LABS: CLARITY,URINE CLEAR (CLEAR)
[2020-06-15 11:17] LABS: HCG UR QUAL NEGATIVE
[2020-06-15] MEDS ORDERED: HYDROmorphone 1 MG/ML CARPUJECT IVP STA (12:01)
--- NOTE | 2020-06-15 13:09 | CT Report ---
PROCEDURE: Abdomen/Pelvis W INDICATIONS: abdominal pain CONTRAST: IV CONTRAST: Optiray 320 ml: 100 PO CONTRAST: *NO PO CONTRAST TECHNIQUE: After the administration of intravenous contrast, 5 mm thick sections acquired from the diaphragms to the symphysis. 5 mm thick coronal and sagittal reformats were acquired. For radiation dose reducti on, the following was used: automated exposure control, adjustment of mA and/or kV according to brenda ent size. COMPARISON: None. FINDINGS: Image quality: Excellent. ABDOMEN: Lung bases: Lung bases are clear. Heart size is normal. Solid organs: Liver is enlarged. The spleen is normal in size and enhancement. Gallbladder is unrem arkable Biliary system is non dilated. Pancreas enhances normally. No adrenal nodules. Kidneys de monstrate normal size and enhancement, without hydronephrosis. Peritoneum and bowel: There are mildly prominent fluid-filled loops of small bowel within the lower a bdomen. There is a prominent focus of stool within the cecum appearing somewhat masslike. There is eq ualization of the distal small bowel. No free fluid or air. Nodes and vessels: No retroperitoneal or mesenteric adenopathy by size criteria. Aorta and inferior vena cava are normal in size. Miscellaneous: No ventral hernias. PELVIS: Genitourinary: Bladder wall thickness is normal. Miscellaneous: No inguinal hernias or adenopathy. Bones: No suspicious bony lesions. No vertebral body compression fractures. IMPRESSION: 1. Masslike focus of stool within the cecum with fluid-filled dilation of the distal small bowel sugg estive of partial obstruction. Reviewed by: Elza Harrington MD on 06/15/2020 1:08 PM PDT Approved by: Elza Harrington MD on 06/15/2020 1:08 PM PDT Station ID: [id number]
--- NOTE | 2020-06-15 13:12 | ED Physician Documentation ---
History of Present Illness - Stated complaint Stated Complaint: VOMITING - Chief complaint Chief Complaint: Abd Pain - History obtained from History obtained from: Patient - Additonal information Additional information: Patient comes emergency department complaining of abdominal pain and vomiting that started last night. The patient states that she began to feel unwell prior, and that symptoms culminated in violent vomiting. She states she vomited on and off throughout the night and the morning and has been having waves of mid abdominal pain since. She denies any fevers or chills. No chest symptoms. No dysuria. No vaginal symptoms. The patient states that she has given 4 times vaginally. She is not had any abdominal surgeries. The patient states she has had a little bit of diarrhea, but not as much as she would expect for the amount of vomiting she is done. She also has noted that she really has not passed any gas to speak of today. No other complaints at this time. Review of Systems Ten Systems: 10 systems reviewed and negative Constitutional: reports: Reviewed and negative Eyes: reports: Reviewed and negative Ears: reports: Reviewed and negative Nose: reports: Reviewed and negative Throat: reports: Reviewed and negative Cardiac: reports: Reviewed and negative Respiratory: reports: Reviewed and negative GI: reports: Abdominal Pain, Nausea, Vomiting, Diarrhea : denies: Dysuria, Vaginal bleeding Skin: reports: Reviewed and negative Musculoskeletal: reports: Reviewed and negative Neurologic: reports: Reviewed and negative Psychiatric: reports: Reviewed and negative Endocrine: reports: Reviewed and negative Immunocompromised: reports: Reviewed and negative PD PAST MEDICAL HISTORY - Past Medical History Past Medical History: Yes Cardiovascular: None, Arrhythmia Respiratory: Pneumonia, Other Neuro: None Endocrine/Autoimmune: None GI: None, Other COLLETER: None : None HEENT: Other Psych: Depression, Anxiety Musculoskeletal: Osteoarthritis, Other Derm: None - Past Surgical History Past Surgical History: Yes Ortho: Arthroscopic surgery, Other - Present Medications Home Medications: Ambulatory Orders Medication Instructions Recorded Confirmed Cyclobenzaprine [Flexeril] 10 mg PO TID PRN #20 tablet 07/31/18 05/31/19 Meloxicam [Mobic] 15 mg PO DAILY PRN #20 tablet 07/31/18 05/31/19 Albuterol Sulfate [Proair Hfa 1 - 2 puffs INH Q4H PRN 05/26/19 05/31/19 Inhaler] - Allergies Allergies/Adverse Reactions: Allergies Allergy/AdvReac Type Severity Reaction Status Date / Time morphine Allergy Anaphylaxis Verified 10/22/18 12:05 - Social History Does the pt smoke?: No Smoking Status: Never smoker Does the pt drink ETOH?: No Does the pt have substance abuse?: Yes Substance Use and Type: Marijuana - Immunizations Immunizations are current?: Yes - POLST Patient has POLST: No PD ED PE NORMAL - Vitals Vital signs reviewed: Yes - General General: Alert and oriented X 3, No acute distress - HEENT HEENT: Atraumatic, PERRL, EOMI, Moist mucous membranes - Neck Neck: Supple, no meningeal sign - Cardiac Cardiac: RRR, No murmur, Strong equal pulses - Respiratory Respiratory: No respiratory distress, Clear bilaterally - Abdomen Abdomen: Soft, Non distended, Other (Moderate tenderness, periumbilically, no rebound or guarding.) - Back Back: No CVA TTP - Derm Derm: Normal color, Warm and dry, No rash - Extremities Extremities: No deformity, No edema, No calf tenderness / cord - Neuro Neuro: Alert and oriented X 3, pediatric speech language pathologist 2-12 intact, Other - Psych Psych: Normal mood, Normal affect Results - Vitals Vitals: Vital Signs - 24 hr 06/15/20 06/15/20 10:07 12:10 Temperature 36.8 C Heart Rate 53 L 66 Respiratory 16 12 Rate Blood Pressure 139/96 H 131/77 H O2 Saturation 100 98 Oxygen O2 Source Room air - Labs Labs: Laboratory Tests 06/15/20 06/15/20 06/15/20 10:40 10:40 10:40 WBC 7.8 RBC 4.76 Hgb 14.8 Hct 43.3 MCV 91.0 MCH 31.1 H MCHC 34.2 RDW 12.5 Plt Count 264 MPV 10.2 Neut # (Auto) 6.6 Lymph # (Auto) 0.8 L [place] # (Auto) 0.3 Eos # (Auto) 0.0 Baso # (Auto) 0.0 Absolute Nucleated RBC 0.00 Nucleated RBC % 0.0 PT 12.1 INR 1.1 Sodium 140 Potassium 3.1 L Chloride 101 Carbon Dioxide 26 Anion Gap 13.0 BUN 11 Creatinine 0.7 Estimated GFR (MDRD) 89 Glucose 119 H Calcium 9.5 Total Bilirubin 0.9 AST 20 ALT 22 Alkaline Phosphatase 35 L Total Protein 7.8 Albumin 4.5 Globulin 3.3 Albumin/Globulin Ratio 1.4 Lipase 26 Urine Color Urine Clarity Urine pH Ur Specific [place] Urine Protein Urine Glucose (UA) Urine Ketones Urine Occult Blood Urine Nitrite Urine Bilirubin Urine Urobilinogen Ur Leukocyte Esterase Ur Microscopic Review Urine Culture Comments Urine HCG, Qual 06/15/20 06/15/20 10:45 10:45 WBC RBC Hgb Hct MCV MCH MCHC RDW Plt Count MPV Neut # (Auto) Lymph # (Auto) [place] # (Auto) Eos # (Auto) Baso # (Auto) Absolute Nucleated RBC Nucleated RBC % PT INR Sodium Potassium Chloride Carbon Dioxide Anion Gap BUN Creatinine Estimated GFR (MDRD) Glucose Calcium Total Bilirubin AST ALT Alkaline Phosphatase Total Protein Albumin Globulin Albumin/Globulin Ratio Lipase Urine Color YELLOW Urine Clarity CLEAR Urine pH >=9.0 H Ur Specific [place] 1.015 1.015 Urine Protein TRACE Urine Glucose (UA) NEGATIVE Urine Ketones 40 H Urine Occult Blood NEGATIVE Urine Nitrite NEGATIVE Urine Bilirubin NEGATIVE Urine Urobilinogen 0.2 (NORMAL) Ur Leukocyte Esterase NEGATIVE Ur Microscopic Review NOT INDICATED Urine Culture Comments NOT INDICATED Urine HCG, Qual NEGATIVE - Rads (name of study) CT abd/pelvis Radiology: Final report received, EMP read indepedently, See rad report (Partial small bowel obstruction with cecal fecal impaction.) PD MEDICAL DECISION MAKING - ED course Complexity details: reviewed results, re-evaluated patient, considered differential, d/w patient ED course: Patient was worked up with labs, urinalysis, and CT scan of the abdomen and pelvis. She was found to have a partial small bowel obstruction distally, which seemed to be related to a cecal stool impaction. I spoke with both Dr. Pang and Dr. Preciado about this and it was agreed that patient would be admitted to hospitalist service with surgery consulting. Per Dr. Pang's request, I did order an NG tube. The findings and the plan have been discussed with the patient, who is agreeable to admission and NG tube placement. She required 2 doses of Zofran and a dose of fentanyl as well as 2 doses of Dilaudid while in the emergency department. Her symptoms were improved after each of these. Patient did not have any further vomiting in the emergency department. Departure - Departure Disposition: [facility] DC/Xfer Clinical Impression: Partial small bowel obstruction Condition: Serious
[2020-06-15] MEDS ORDERED: SODIUM CHLORIDE FLUSH 0.9% 10 ML SYRINGE IVP PRN (13:18)
[2020-06-15] MEDS ORDERED: ONDANSETRON 4 MG/2 ML VIAL IVP PRN (13:18)
[2020-06-15] MEDS ORDERED: ACETAMINOPHEN 325 MG TABLET PO PRN (13:18)
[2020-06-15] MEDS ORDERED: IOVERSOL 320 100 ML VIAL IVP ONE ×2 (13:20→14:44)
[2020-06-15] MEDS ORDERED: LACTATED RINGERS 1,000 ML IV ONE (13:21)
[2020-06-15] MEDS ORDERED: LACTULOSE 10 GM /15 ML UDC NG STA (13:27)
--- NOTE | 2020-06-15 13:27 | HISTORY & PHYSICAL EXAMINATION ---
Chief Complaint - Chief Complaint Chief Complaint: Abdominal pain wtih vomiting History of Present Illness - Admitted From Admitted From:: Home - History Obtained From Records Reviewed: Yes History obtained from: Patient, ER Physician, EMR - History of Present Illness HPI Comment/Other: This is a 50-year-old female with a past medical history significant for Amy- Danlos syndrome who presents today complaining of abdominal pain and nausea/vomiting. He reports her symptoms began about 11 PM last night when she returned to have a bowel movement but was unsuccessful. Had a large episode of emesis that was nonbloody. She states she felt quite sick after this intermediate bathroom for a few hours as she was quite nauseous and had a couple more episodes of emesis. She reported no fevers but felt chills as well as the sensation of being hot and cold. She reports her last bowel movement was last night but it was a small amount of stool. She reports going regularly on a daily basis. She reports no history of abdominal surgeries. She reports no family history of any abdominal problems including cancer although her brother just had a bowel resection for diverticulitis about 1 month ago. She reports no similar symptoms in the past. In the emergency department, a CT of the abdomen pelvis was obtained which was concerning for partial bowel obstruction as well as a masslike focus of stool within the cecum. She required multiple doses of IV fentanyl and Dilaudid for pain control as well as Zofran. Given the above findings, medicine was consulted for admission. History - Past Medical History Cardiovascular: reports: None Respiratory: reports: Pneumonia Neuro: reports: None Endocrine/Autoimmune: reports: None GI: reports: None [employer]: reports: None : reports: None Psych: reports: Depression, Anxiety Musculoskeletal: reports: Osteoarthritis, Other (Amy Danlos) Derm: reports: None MRSA Hx?: No - Past Surgical History Ortho: reports: Arthroscopic surgery, Other (Jaw surgery.) - Family & Social History Family History Comment/Other: She reports no significant family history except for a brother who had diverticulitis and required a bowel resection. Denies any history of cancer. Living arrangement: At home Living Situation: With spouse/s.o. Social History Notes: She lives at home with her significant other and her 12-year-old child. She denies any alcohol or smoking use. She does use marijuana on a daily basis for joint pain. - POLST Patient has POLST: No Meds/Allgy - Home Medications Home Medications: Ambulatory Orders Medication Instructions Recorded Confirmed Cyclobenzaprine [Flexeril] 10 mg PO TID PRN #20 tablet 07/31/18 06/15/20 Meloxicam [Mobic] 15 mg PO DAILY PRN #20 tablet 07/31/18 06/15/20 Albuterol Sulfate [Proair Hfa 1 - 2 puffs INH Q4H PRN 05/26/19 06/15/20 Inhaler] - Allergies Allergies/Adverse Reactions: Allergies Allergy/AdvReac Type Severity Reaction Status Date / Time morphine Allergy Anaphylaxis Verified 10/22/18 12:05 Review of Systems - Constitutional Constitutional: reports: Chills, Malaise, Poor appetite. denies: Fatigue, Fever, Weakness - Cardiovascular Cariovascular: reports: Lightheadedness. denies: Chest pain, Exertional dyspnea, Decr. exercise tolerance - Respiratory Respiratory: denies: SOB at rest, SOB with exertion - Gastrointestinal Gastrointestinal: reports: Abdominal pain, Abdominal distention, Constipation, Change in bowel habits, Nausea, Vomiting, Bloating, Poor appetite. denies: Diarrhea, Elbert blood emesis - Genitourinary Genitourinary: denies: Dysuria, Frequency, Urgency, Hematuria - Musculoskeletal Musculoskeletal: reports: Joint pain - Integumentary Integumentary: denies: Rash - Neurological Neurological: reports: Dizziness. denies: General weakness, Focal weakness - All Other Systems All Other Systems: reports: Reviewed and negative Prior Level of Functionality: She is independent with her ADLs. Exam - Vital Signs Reviewed Vital Signs: Yes Vital Signs: Vital Signs x48h Temp Pulse Resp BP Pulse Ox 06/15/20 12:10 66 12 131/77 H 98 06/15/20 10:07 36.8 C 53 L 16 139/96 H 100 - Physical Exam General Appearance: positive: Alert, Mild distress Eyes Bilateral: positive: Normal inspection, Conjunctivae nml ENT: positive: ENT inspection nml, Other (NG tube in place.) Neck: positive: Nml inspection Respiratory: positive: No respiratory distress, Breath sounds nml. negative: Wheezes, Rales Cardiovascular: positive: Regular rate & rhythm, No murmur. negative: Tachycardia, Bradycardia, Systolic murmur Abdomen: positive: Tenderness (Tender in the right upper quadrant and epigastric region.), Abnml bowel sounds (Hypoactive bowel sounds.). negative: Non-tender, No distention (Abdomen is soft but distended.), Guarding, Rebound Skin: positive: No rash, Warm, Dry Extremities: positive: Full ROM, No pedal edema Neurologic/Psychiatric: positive: Oriented x3, Motor nml. negative: Disoriented to person, Disoriented to place, Disoriented to time Conclusion/Plan - Problem List (1) Partial small bowel obstruction Conclusion/Plan: This is evident on a CT of the abdomen and pelvis. She also has a large amount of stool in the cecum. We will place in observation and place an NG tube. Spoke with general surgery briefly who recommended NG tube with lactulose and fecal impaction. We will do this today if the patient has not improved by tomorrow then we will place an official consult. N.p.o. for time being. Pain control with Toradol. Continue IV fluids. If she does not improve by tomorrow then we will place an official general surgery consult. (2) Hypokalemia Conclusion/Plan: We will replace intravenously given she is n.p.o. Recheck in the morning. - Lab Results Lab results reviewed: Yes Fish Bones: 06/16/20 04:50 06/16/20 04:50 - Diagnostic Imaging Results Diagnostic Imaging Results: positive: Final report reviewed Core Measures - Anticipated LOS I expect patient to be DC'd or transferred within 96 hours.: Yes - Issues Hospital Issues and Management Plan: 50-year-old female with a partial small bowel obstruction and what appears to fecal impaction. We will place in observation and make n.p.o. for time being. Place NG tube and administer lactulose. Fecal disimpaction. - DVT/VTE - Prophylaxis VTE/DVT Device ordered at admit?: Yes VTE/DVT Prophylaxis med ordered at admit?: Yes
[2020-06-15] MEDS ORDERED: KETOROLAC 30 MG/ML VIAL IVP PRN (13:36)
[2020-06-15] MEDS ORDERED: PHENOL THROAT SPRAY 177 ML MM PRN (14:35)
[2020-06-15] MEDS: POTASSIUM CHLOR 10 MEQ/100 ML 10 MEQ/100 ML BAG IV SCH ×2 (16:08→18:03)
--- NOTE | 2020-06-15 16:14 | XRAY Report ---
PROCEDURE: Chest for Line Placement INDICATIONS: NG tube placement TECHNIQUE: One view of the chest was acquired. COMPARISON: None FINDINGS: Enteric tube terminates in the stomach at the inferior aspect of the field of view. The lungs are roxie ar and well expanded. There is no pleural effusion or other significant pleural abnormality demonstra brian. Remote healed right rib fracture. IMPRESSION: Adequate position of NG tube. Reviewed by: Prashanth Fonseca MD on 06/15/2020 4:12 PM PDT Approved by: Prashanth Fonseca MD on 06/15/2020 4:12 PM PDT Station ID: [id number]
[2020-06-15] MEDS: SODIUM CHLORIDE FLUSH 0.9% 10 ML SYRINGE IVP SCH ×2 (16:17→23:56)
--- NOTE | 2020-06-15 17:29 | PHARMACY PROGRESS NOTE ---
- Best Possible Medication History Admit Date and Time: 06/15/20 1318 Processed by: Pharmacy Medication History completed: Yes Patient Interview: Completed Secondary Source(s): Pharmacy records As the person ultimately responsible for medication therapy, providers are able to order a medication from an existing home medication list in [facility] via the "Reconcile Routine" prior to Confirmation of that medication by support manager. Such practice is discouraged except when the physician, in their clinical judgment, deems that a medical need exists for a medication without regard to previous use.
[2020-06-15] MEDS ORDERED: CYCLOBENZAPRINE 10 MG TABLET PO PRN (18:39)
[2020-06-15] MEDS: D5.45NS W/20 MEQ KCL 1,000 ML IV SCH (22:03)
[2020-06-16 05:14] LABS: BASOPHILS # (AUTO) 0.1 10^3/uL (0.0-0.1); BASOPHILS % (AUTO) 0.7 %; EOSINOPHILS # (AUTO) 0.3 10^3/uL (0.0-0.7); EOSINOPHILS % (AUTO) 4.1 %; LYMPHOCYTES # (AUTO) 2.6 10^3/uL (1.5-3.5); LYMPHOCYTES % (AUTO) 31.6 %; MEAN CORPUSCULAR HEMOGLOBIN 31.2 pg (27.0-31.0); MEAN CORPUSCULAR HGB CONC 33.2 g/dL (32.0-36.0); MEAN CORPUSCULAR VOLUME 93.8 fL (81.0-99.0); MEAN PLATELET VOLUME 10.4 fL (7.9-10.8); MONOCYTES # (AUTO) 0.6 10^3/uL (0.0-1.0); MONOCYTES % (AUTO) 7.4 %; NEUTROPHILS # (AUTO) 4.5 10^3/uL (1.5-6.6); PLT - PLATELET COUNT 228 10^3/uL (130-450); RED BLOOD COUNT 3.85 10^6/uL (4.20-5.40); WHITE BLOOD COUNT 8.1 x10^3/uL (4.8-10.8)
[2020-06-16 05:35] LABS: CALCIUM 8.2 mg/dL (8.5-10.3); CREATININE 0.7 mg/dL (0.4-1.0); PHOSPHORUS 2.5 mg/dL (2.5-4.6)
[2020-06-16] MEDS ORDERED: ENOXAPARIN 40 MG/0.4 ML SYRINGE SUBQ SCH (09:00)
[2020-06-16] MEDS: D5.45NS W/20 MEQ KCL 1,000 ML IV SCH (09:01)
[2020-06-16] MEDS: POTASSIUM CHLOR 10 MEQ/100 ML 10 MEQ/100 ML BAG IV SCH ×2 (09:03→11:06)
[2020-06-16] MEDS: SODIUM CHLORIDE FLUSH 0.9% 10 ML SYRINGE IVP SCH ×2 (09:06→15:45)
--- NOTE | 2020-06-16 10:39 | PROVIDER PROGRESS NOTE ---
Subjective - Prog Note Date Prog Note Date: 06/16/20 - Subjective Subjective: No more nausea or vomiting. She still has abdominal distention and mild abdominal pain. Has not had a bowel movement. She has minimal output from the NG tube. Current Medications - Current Medications Current Medications: Active Medications Acetaminophen (Tylenol) 650 mg PO Q4HR PRN PRN Reason: Pain 1 to 4 Cyclobenzaprine HCl (Flexeril) 10 mg PO TID PRN PRN Reason: Spasms Last Admin: 06/15/20 21:39 Dose: 10 mg Documented by: Enoxaparin Sodium (Lovenox) 40 mg SUBQ DAILY MAGED Last Admin: 06/16/20 09:05 Dose: 40 mg Documented by: Potassium Chloride/Dextrose/Sod Cl (D5.45ns W/20 Meq Kcl) 1,000 mls @ 100 mls/hr IV .Q10H [facility] Last Admin: 06/16/20 09:01 Dose: 100 mls/hr Documented by: Ketorolac Tromethamine (Toradol Inj (30mg)) 30 mg IVP Q6HR PRN PRN Reason: PAIN Stop: 06/20/20 13:35 Last Admin: 06/16/20 00:10 Dose: 30 mg Documented by: Ondansetron HCl (Zofran Inj) 4 mg IVP Q6HR PRN PRN Reason: Nausea / Vomiting Last Admin: 06/16/20 00:09 Dose: 4 mg Documented by: Phenol/Menthol (Chloraseptic) 2 sprays MM Q2HR PRN PRN Reason: Throat Pain Last Admin: 06/15/20 16:07 Dose: 2 sprays Documented by: Sodium Chloride (Normal Saline Flush 0.9%) 10 ml IVP PRN PRN PRN Reason: NEEDED PER PROVIDER ORDERS Last Admin: 06/15/20 14:30 Dose: 10 ml Documented by: Sodium Chloride (Normal Saline Flush 0.9%) 10 ml IVP 0100,0900,1700 [facility] Last Admin: 06/16/20 09:06 Dose: Not Given Documented by: Albuterol Sulfate [Proair Hfa Inhaler] 1 - 2 puffs INH Q4H PRN 05/26/19 Objective - Vital Signs/Intake & Output Reviewed Vital Signs: Yes Vital Signs: Vital Signs x48h Temp Pulse Resp BP Pulse Ox 06/16/20 08:35 37 C 61 18 125/85 H 100 06/16/20 04:27 36.9 C 71 16 120/68 99 Intake & Output: Intake & Output 06/13/20 06/14/20 06/15/20 06/16/20 23:59 23:59 23:59 23:59 Intake Total 2230 1060 Output Total 50 35 Balance 2180 1025 - Objective General Appearance: positive: No acute distress, Alert Eyes Bilateral: positive: Normal inspection, Conjunctivae nml ENT: positive: ENT inspection nml, Other (Ng tube in place.) Neck: positive: Nml inspection Respiratory: positive: No respiratory distress. negative: Wheezes, Rales Cardiovascular: positive: Regular rate & rhythm, No murmur. negative: Tachycardia, Bradycardia, Systolic murmur Abdomen: positive: Tenderness (Mild tenderness over the right side of her abdomen.), Abnml bowel sounds (Hypoactive.). negative: Non-tender, No distention, Guarding, Rebound Skin: positive: Warm, Dry Extremities: positive: Full ROM, No pedal edema Neurologic/Psychiatric: positive: Oriented x3. negative: Disoriented to person, Disoriented to place, Disoriented to time - Lab Results Fish Bones: 06/16/20 04:50 06/16/20 04:50 Other Labs: Lab Results x24hrs 06/16/20 06/16/20 06/15/20 Range/Units 04:50 04:50 10:45 WBC 8.1 (4.8-10.8) x10^3/uL RBC 3.85 L (4.20-5.40) 10^6/uL Hgb 12.0 (12.0-16.0) g/dL Hct 36.1 L (37.0-47.0) % MCV 93.8 (81.0-99.0) fL MCH 31.2 H (27.0-31.0) pg MCHC 33.2 (32.0-36.0) g/dL RDW 13.0 (12.0-15.0) % Plt Count 228 (130-450) 10^3/uL MPV 10.4 (7.9-10.8) fL Neut # (Auto) 4.5 (1.5-6.6) 10^3/uL Lymph # (Auto) 2.6 (1.5-3.5) 10^3/uL [place] # (Auto) 0.6 (0.0-1.0) 10^3/uL Eos # (Auto) 0.3 (0.0-0.7) 10^3/uL Baso # (Auto) 0.1 (0.0-0.1) 10^3/uL Absolute Nucleated RBC 0.00 x10^3/uL Nucleated RBC % 0.0 /100WBC PT (9.9-12.6) secs INR (0.8-1.2) Sodium 138 (135-145) mmol/L Potassium 3.3 L (3.5-5.0) mmol/L Chloride 109 (101-111) mmol/L Carbon Dioxide 25 (21-32) mmol/L Anion Gap 4.0 L (6-13) BUN 7 (6-20) mg/dL Creatinine 0.7 (0.4-1.0) mg/dL Estimated GFR (MDRD) 89 (>89) Glucose 117 H (70-100) mg/dL Calcium 8.2 L (8.5-10.3) mg/dL Phosphorus 2.5 (2.5-4.6) mg/dL Magnesium 2.0 (1.7-2.8) mg/dL Total Bilirubin (0.2-1.0) mg/dL AST (10-42) IU/L ALT (10-60) IU/L Alkaline Phosphatase (42-121) IU/L Total Protein (6.7-8.2) g/dL Albumin (3.2-5.5) g/dL Globulin (2.1-4.2) g/dL Albumin/Globulin Ratio (1.0-2.2) Lipase (22-51) U/L Urine Color Urine Clarity (CLEAR) Urine pH (5.0-7.5) PH Ur Specific [place] 1.015 (1.002-1.030) Urine Protein (NEGATIVE) mg/dL Urine Glucose (UA) (NEGATIVE) mg/dL Urine Ketones (NEGATIVE) mg/dL Urine Occult Blood (NEGATIVE) Urine Nitrite (NEGATIVE) Urine Bilirubin (NEGATIVE) Urine Urobilinogen (NORMAL) E.U./dL Ur Leukocyte Esterase (NEGATIVE) Ur Microscopic Review Urine Culture Comments Urine HCG, Qual NEGATIVE 06/15/20 06/15/20 06/15/20 Range/Units 10:45 10:40 10:40 WBC (4.8-10.8) x10^3/uL RBC (4.20-5.40) 10^6/uL Hgb (12.0-16.0) g/dL Hct (37.0-47.0) % MCV (81.0-99.0) fL MCH (27.0-31.0) pg MCHC (32.0-36.0) g/dL RDW (12.0-15.0) % Plt Count (130-450) 10^3/uL MPV (7.9-10.8) fL Neut # (Auto) (1.5-6.6) 10^3/uL Lymph # (Auto) (1.5-3.5) 10^3/uL [place] # (Auto) (0.0-1.0) 10^3/uL Eos # (Auto) (0.0-0.7) 10^3/uL Baso # (Auto) (0.0-0.1) 10^3/uL Absolute Nucleated RBC x10^3/uL Nucleated RBC % /100WBC PT 12.1 (9.9-12.6) secs INR 1.1 (0.8-1.2) Sodium 140 (135-145) mmol/L Potassium 3.1 L (3.5-5.0) mmol/L Chloride 101 (101-111) mmol/L Carbon Dioxide 26 (21-32) mmol/L Anion Gap 13.0 (6-13) BUN 11 (6-20) mg/dL Creatinine 0.7 (0.4-1.0) mg/dL Estimated GFR (MDRD) 89 (>89) Glucose 119 H (70-100) mg/dL Calcium 9.5 (8.5-10.3) mg/dL Phosphorus (2.5-4.6) mg/dL Magnesium (1.7-2.8) mg/dL Total Bilirubin 0.9 (0.2-1.0) mg/dL AST 20 (10-42) IU/L ALT 22 (10-60) IU/L Alkaline Phosphatase 35 L (42-121) IU/L Total Protein 7.8 (6.7-8.2) g/dL Albumin 4.5 (3.2-5.5) g/dL Globulin 3.3 (2.1-4.2) g/dL Albumin/Globulin Ratio 1.4 (1.0-2.2) Lipase 26 (22-51) U/L Urine Color YELLOW Urine Clarity CLEAR (CLEAR) Urine pH >=9.0 H (5.0-7.5) PH Ur Specific [place] 1.015 (1.002-1.030) Urine Protein TRACE (NEGATIVE) mg/dL Urine Glucose (UA) NEGATIVE (NEGATIVE) mg/dL Urine Ketones 40 H (NEGATIVE) mg/dL Urine Occult Blood NEGATIVE (NEGATIVE) Urine Nitrite NEGATIVE (NEGATIVE) Urine Bilirubin NEGATIVE (NEGATIVE) Urine Urobilinogen 0.2 (NORMAL) (NORMAL) E.U./dL Ur Leukocyte Esterase NEGATIVE (NEGATIVE) Ur Microscopic Review NOT INDICATED Urine Culture Comments NOT INDICATED Urine HCG, Qual 06/15/20 Range/Units 10:40 WBC 7.8 (4.8-10.8) x10^3/uL RBC 4.76 (4.20-5.40) 10^6/uL Hgb 14.8 (12.0-16.0) g/dL Hct 43.3 (37.0-47.0) % MCV 91.0 (81.0-99.0) fL MCH 31.1 H (27.0-31.0) pg MCHC 34.2 (32.0-36.0) g/dL RDW 12.5 (12.0-15.0) % Plt Count 264 (130-450) 10^3/uL MPV 10.2 (7.9-10.8) fL Neut # (Auto) 6.6 (1.5-6.6) 10^3/uL Lymph # (Auto) 0.8 L (1.5-3.5) 10^3/uL Steele # (Auto) 0.3 (0.0-1.0) 10^3/uL Eos # (Auto) 0.0 (0.0-0.7) 10^3/uL Baso # (Auto) 0.0 (0.0-0.1) 10^3/uL Absolute Nucleated RBC 0.00 x10^3/uL Nucleated RBC % 0.0 /100WBC PT (9.9-12.6) secs INR (0.8-1.2) Sodium (135-145) mmol/L Potassium (3.5-5.0) mmol/L Chloride (101-111) mmol/L Carbon Dioxide (21-32) mmol/L Anion Gap (6-13) BUN (6-20) mg/dL Creatinine (0.4-1.0) mg/dL Estimated GFR (MDRD) (>89) Glucose (70-100) mg/dL Calcium (8.5-10.3) mg/dL Phosphorus (2.5-4.6) mg/dL Magnesium (1.7-2.8) mg/dL Total Bilirubin (0.2-1.0) mg/dL AST (10-42) IU/L ALT (10-60) IU/L Alkaline Phosphatase (42-121) IU/L Total Protein (6.7-8.2) g/dL Albumin (3.2-5.5) g/dL Globulin (2.1-4.2) g/dL Albumin/Globulin Ratio (1.0-2.2) Lipase (22-51) U/L Urine Color Urine Clarity (CLEAR) Urine pH (5.0-7.5) PH Ur Specific [place] (1.002-1.030) Urine Protein (NEGATIVE) mg/dL Urine Glucose (UA) (NEGATIVE) mg/dL Urine Ketones (NEGATIVE) mg/dL Urine Occult Blood (NEGATIVE) Urine Nitrite (NEGATIVE) Urine Bilirubin (NEGATIVE) Urine Urobilinogen (NORMAL) E.U./dL Ur Leukocyte Esterase (NEGATIVE) Ur Microscopic Review Urine Culture Comments Urine HCG, Qual Assessment/Plan - Problem List (1) Partial small bowel obstruction Impression: There has been minimal output out of the NG tube and disimpaction was unsu ccessful as the stool is in the cecum. I spoke with general surgery today who will evaluate the patient but are leaning towards a bowel prep and colonoscopy in the morning. I will await their official evaluation before ordering the bowel prep. We could also consider Gastrografin. At this time, we will keep her n.p.o. and continue IV fluids. Pain control with Toradol and fentanyl as needed. Appreciate general surgery input. (2) Hypokalemia Impression: Improved but she is still hypokalemic. We will give her K riders today and continue with potassium in her IV fluids.
[2020-06-16] MEDS ORDERED: polyethylene glycoL 3350 17 GM PACKET PO SCH (13:49)
--- NOTE | 2020-06-16 15:20 | HISTORY & PHYSICAL EXAMINATION ---
Chief Complaint - Chief Complaint Chief Complaint: nausea and vomiting yesterday Abdominal Pain HPI - History Obtained From History obtained from: Patient Exam limitations: No limitations - History of Present Illness Severity at the worst: Moderate Pain Quality: Dull Context-Pain started w/: Other (following multiple bouts emesis) Duration: Days: (1) Improved with: Other (iv fluids) HPI Comment/Other: She became very dehydrated started throwing up and later developed vague abdominal discomfort. She denies change in bowel habits, family history of colon cancer, prior similar symptoms, blood in stool. she currently is much improved. minimal discomfort. no nausea. she states she never feels hungry since jaw surgery a year ago. PMH/PSH - Past Medical History Cardiovascular: positive: None Respiratory: positive: Pneumonia Neuro: positive: None Endocrine/Autoimmune: positive: None GI: positive: None [employer]IST: positive: None : positive: None HEENT: positive: Other Psych: positive: Depression, Anxiety Musculoskeletal: positive: Osteoarthritis, Other (Amy Danlos) Derm: positive: None MRSA Hx?: No Other Past Medical History: ehler-danlos syndrome, TMJ - Past Surgical History Ortho: positive: Arthroscopic surgery, Other (Jaw surgery.) Social & Family Hx - Social History Does the pt smoke?: No Smoking Status: Never smoker Does the pt drink ETOH?: No Does the pt have substance abuse?: Yes Substance Use and Type: Marijuana - POLST Patient has POLST: No Meds/Allgy - Home Medications Home Medications: Ambulatory Orders Medication Instructions Recorded Confirmed Cyclobenzaprine [Flexeril] 10 mg PO TID PRN #20 tablet 07/31/18 06/15/20 Meloxicam [Mobic] 15 mg PO DAILY PRN #20 tablet 07/31/18 06/15/20 Albuterol Sulfate [Proair Hfa 1 - 2 puffs INH Q4H PRN 05/26/19 06/15/20 Inhaler] - Allergies Allergies/Adverse Reactions: Allergies Allergy/AdvReac Type Severity Reaction Status Date / Time morphine Allergy Anaphylaxis Verified 10/22/18 12:05 Review of Systems - Other Findings Other Findings: 10 pt ros as above and below otherwise unremarkable no fevers Exam - Vital Signs Vital Signs: Vital Signs x48h Temp Pulse Resp BP Pulse Ox 06/16/20 12:38 36.8 C 75 16 141/77 H 99 09/04/20 08:35 37 C 61 18 125/85 H 100 - Physical Exam General Appearance: positive: No acute distress, Alert Eyes Bilateral: positive: Normal inspection, EOMI Neck: positive: No JVD Respiratory: positive: No respiratory distress Abdomen: positive: Non-tender, No distention Neurologic/Psychiatric: positive: Oriented x3 Results - Lab Results Fish Bones: 06/16/20 04:50 06/16/20 04:50 Other Lab Results: Lab Results x24hrs 06/16/20 06/16/20 Range/Units 04:50 04:50 WBC 8.1 (4.8-10.8) x10^3/uL RBC 3.85 L (4.20-5.40) 10^6/uL Hgb 12.0 (12.0-16.0) g/dL Hct 36.1 L (37.0-47.0) % MCV 93.8 (81.0-99.0) fL MCH 31.2 H (27.0-31.0) pg MCHC 33.2 (32.0-36.0) g/dL RDW 13.0 (12.0-15.0) % Plt Count 228 (130-450) 10^3/uL MPV 10.4 (7.9-10.8) fL Neut # (Auto) 4.5 (1.5-6.6) 10^3/uL Lymph # (Auto) 2.6 (1.5-3.5) 10^3/uL [place] # (Auto) 0.6 (0.0-1.0) 10^3/uL Eos # (Auto) 0.3 (0.0-0.7) 10^3/uL Baso # (Auto) 0.1 (0.0-0.1) 10^3/uL Absolute Nucleated RBC 0.00 x10^3/uL Nucleated RBC % 0.0 /100WBC Sodium 138 (135-145) mmol/L Potassium 3.3 L (3.5-5.0) mmol/L Chloride 109 (101-111) mmol/L Carbon Dioxide 25 (21-32) mmol/L Anion Gap 4.0 L (6-13) BUN 7 (6-20) mg/dL Creatinine 0.7 (0.4-1.0) mg/dL Estimated GFR (MDRD) 89 (>89) Glucose 117 H (70-100) mg/dL Calcium 8.2 L (8.5-10.3) mg/dL Phosphorus 2.5 (2.5-4.6) mg/dL Magnesium 2.0 (1.7-2.8) mg/dL - Diagnostic Imaging Results Diagnostic Imaging Results: positive: Read independently, Other (ct no oral c ontrast and she is very thin. difficult to interpret. no definite pathology) Impression/Plan - Problem List Problem List: nausea and vomiting. she is much improved. Discussed with her and the medical service. plan clears, if doing well slowly advance diet, d/c ngt, d/c patient home [facility] doing [facility]
--- NOTE | 2020-06-16 16:39 | Discharge Plan ---
Discharge Plan Problem Reviewed?: Yes Disposition: Home, Self Care Condition: Stable Prescriptions: polyethylene glycoL 3350 [Miralax] 17 gm PO DAILY #14 packet Ondansetron Odt [Zofran Odt] 4 mg TL Q6H PRN #10 tablet PRN Reason: Nausea / Vomiting Diet: Regular Activity Restrictions: Activity as Tolerated Shower Restrictions: No Driving Restrictions: No Health Concerns: You were seen in the hospital because there was concern that you may have had a bowel obstruction which was continued to have nausea and vomiting. You had a large amount of stool in your large colon. A gastric tube was placed in your stomach to decompress but there was not a lot of fluid to be removed. You were seen by the surgeon who recommended trying you on laxatives and this improved your symptoms. Your been able to tolerate a diet and you are passing gas. You are now stable for discharge. Plan of Treatment: Please take MiraLAX once a day which will help with constipation. Please drink plenty of fluids. Please follow-up with your primary care provider and you should be referred to general surgery for an outpatient colonoscopy. Care Goals: Return to the emergency department if you develop any worsening nausea, vomiting, abdominal pain, fevers, chills. Assessment: Patient expressed understanding of the treatment plan. Additional Instructions or Follow Up instructions: Follow-up with your primary care provider and ask for a referral to general surgery. No Smoking: If you smoke, Please STOP! Call for help. Follow-up with: Callie Foreman ND [Primary Care Provider] -
--- NOTE | 2020-06-16 17:09 | DISCHARGE SUMMARY ---
"Discharge Summary Admit Date: 06/15/20 Discharge Date: 06/16/20 Discharging Provider: Jerry Preciado Primary Care Provider: Callie Foreman Code Status: Attempt Resuscitation Condition at Discharge: Stable Discharge Disposition: 01 Home, Self Care - DIAGNOSES Admission Diagnoses: Partial small bowel obstruction Hypokalemia Discharge Diagnoses with Status of Each Condition: Partial small bowel obstruction - resolved. Hypokalemia - stable. - HPI History of Present Illness: This is a 50-year-old female with a past medical history significant for Amy- Danlos syndrome who presents today complaining of abdominal pain and nausea/vomiting. He reports her symptoms began about 11 PM last night when she returned to have a bowel movement but was unsuccessful. Had a large episode of emesis that was nonbloody. She states she felt quite sick after this intermediate bathroom for a few hours as she was quite nauseous and had a couple more episodes of emesis. She reported no fevers but felt chills as well as the sensation of being hot and cold. She reports her last bowel movement was last night but it was a small amount of stool. She reports going regularly on a daily basis. She reports no history of abdominal surgeries. She reports no family history of any abdominal problems including cancer although her brother just had a bowel resection for diverticulitis about 1 month ago. She reports no similar symptoms in the past. In the emergency department, a CT of the abdomen pelvis was obtained which was concerning for partial bowel obstruction as well as a masslike focus of stool within the cecum. She required multiple doses of IV fentanyl and Dilaudid for pain control as well as Zofran. Given the above findings, medicine was consulted for admission. - CONSULTS | PROCEDURES Consultations: General Surgery - HOSPITAL COURSE Hospital Course: She was admitted to the floor for partial small bowel obstruction. She was made n.p.o. and NG tube was placed. She was given lactulose as recommended by general surgery. CT of the abdomen pelvis showed a masslike focus of stool in the cecum. Disimpaction was attempted but this was unsuccessful. The NG tube was placed to low intermittent suction but there was minimal output. She was evaluated by general surgery the following day and they recommended trialing a clear liquid diet and clamping of the NG tube. She was given a clear liquid diet without any nausea or vomiting. She began to pass gas but not have a bowel movement. Her diet was advanced to a soft diet which she tolerated well. General surgery felt that she could be discharged home and followed up on outpatient basis for colonoscopy. She was started on MiraLAX on outpatient basis and given Zofran for nausea. She was asked to follow-up with her primary care provider and to be referred to general surgery for an outpatient colonoscopy. She was asked to return to the emergency department if she developed any worsening nausea, vomiting, abdominal pain. The patient was agreeable to this. - ALLERGIES Allergies/Adverse Reactions: Allergies Allergy/AdvReac Type Severity Reaction Status Date / Time morphine Allergy Anaphylaxis Verified 10/22/18 12:05 - MEDICATIONS Home Medications: Ambulatory Orders Medication Instructions Recorded Confirmed Cyclobenzaprine [Flexeril] 10 mg PO TID PRN #20 tablet 07/31/18 06/15/20 Meloxicam [Mobic] 15 mg PO DAILY PRN #20 tablet 07/31/18 06/15/20 Albuterol Sulfate [Proair Hfa 1 - 2 puffs INH Q4H PRN 05/26/19 06/15/20 Inhaler] Ondansetron Odt [Zofran Odt] 4 mg TL Q6H PRN #10 tablet 06/16/20 polyethylene glycoL 3350 [Miralax] 17 gm PO DAILY #14 packet 06/16/20 - PHYSICAL EXAM AT DISCHARGE General Appearance: positive: No acute distress, Alert Eyes Bilateral: positive: Normal inspection, Conjunctivae nml ENT: positive: ENT inspection nml Neck: positive: Nml inspection Respiratory: positive: No respiratory distress. negative: Wheezes, Rales Cardiovascular: positive: Regular rate & rhythm, No murmur. negative: Tachycardia, Systolic murmur Abdomen: positive: Nml bowel sounds, Tenderness (Mild right sided tenderness.). negative: Non-tender, Guarding, Rebound Skin: positive: No rash, Warm, Dry Extremities: positive: Full ROM, No pedal edema Neurologic/Psychiatric: positive: Oriented x3, Motor nml. negative: Disoriented to person, Disoriented to place, Disoriented to time - LABS Result Diagrams: 06/16/20 04:50 06/16/20 04:50 - DIAGNOSTIC IMAGING Diagnostic Imaging Results: Final report reviewed - FOLLOW UP Follow Up: She was asked to follow-up with her primary care physician and general surgery. - TIME SPENT Time Spent in Discharge (Minutes): 30"
[2020-06-16 17:37] VITALS: BP 133/89
== END 2020-06-16 18:00 | disposition home or self-care (01) ==
LOC: ED 09:59 → MS2 13:18
PROVIDERS: ADMIT Internal Medicine; ATTEND Internal Medicine
DX: K56.600 Partial intestinal obstruction, unspecified as to cause (principal); E87.6 Hypokalemia; E86.0 Dehydration; Q79.60 Ehlers-Danlos syndrome, unspecified
CPT/HCPCS: 36415; 71045; 74177; 80048; 80053; 81003; 81025; 83690; 83735; 84100; 85025; 85610; 96361; 96365; 96366; 96372; 96375; 96376; 99285; A9270; G0378; J1170; J1650; J7120; Q9967; 81001; 87086

== ENCOUNTER 2020-08-10 13:27 | Day surgery (SDC) | payer MEDICAID ==
--- NOTE | 2020-08-10 13:09 | ANESTHESIA ---
Pre-Anesthesia VS, & Labs - Diagnosis abnormal CT, abdominal pain - Procedure colonoscopy Height: 5 ft 8 in - NPO >8 hours - Is Patient ?: Not Applicable - Lab Results Lab results reviewed: No Home Medications and Allergies Home Medications: Ambulatory Orders Ibuprofen [Motrin] 600 mg PO Q6H PRN 07/31/20 Progesterone, Micronized [Progesterone] 100 mg PO DAILY 07/31/20 Albuterol Sulfate [Proair Hfa Inhaler] 1 - 2 puffs INH Q4H PRN 05/26/19 Ibuprofen [Motrin] 600 mg PO Q6H PRN 07/31/20 Progesterone, Micronized [Progesterone] 100 mg PO DAILY 07/31/20 Allergies/Adverse Reactions: Allergies Allergy/AdvReac Type Severity Reaction Status Date / Time morphine Allergy Anaphylaxis Verified 10/22/18 12:05 Anes History & Medical History - Medical History Cardiovascular: reports: None, Other Pulmonary: reports: Pneumonia Gastrointestinal: reports: Other Urinary: reports: None Neuro: reports: None Musculoskeletal: reports: Osteoarthritis, Other Endocrine/Autoimmune: reports: None Blood Disorders: reports: None Skin: reports: None Smoking Status: Never smoker Psychosocial: reports: Cannabis - Surgical History Orthopedic: Arthroscopic surgery, Other Exam General: Alert, Oriented x3, Cooperative Dental: WNL Mouth Openin Fingerbreadth Neck Mobility: Normal Mallampati classification: II Thyromental Distance: 4-6 cm Respiratory: Lungs clear, Normal breath sounds, No respiratory distress Cardiovascular: Regular rate Mental/Cognitive Status: Alert/Oriented X3, Normal for patient Cognitive Status: Within normal limits Plan Anesthesia Type: MAC (Pt refusing male anesthesia, spoke with surgeon, convert to NM) Consent for Procedure(s) Verified and Reviewed: Yes Code Status: Attempt Resuscitation ASA classification: 2-Mild systemic disease Is this case an emergency?: No
[2020-08-10] MEDS ORDERED: LACTATED RINGERS 1,000 ML IV ONE ×2 (13:36→14:53)
[2020-08-10 13:50] LABS: HCG UR QUAL NEGATIVE
[2020-08-10 15:51] VITALS: BP 90/62
== END 2020-08-10 13:28 | disposition home or self-care (01) ==
LOC: SDS 13:27
PROVIDERS: ATTEND Surgery
DX: R93.5 Abnormal findings on diagnostic imaging of other abdominal regions, including retroperitoneum (principal); R10.84 Generalized abdominal pain; Z79.1 Long term (current) use of non-steroidal anti-inflammatories (NSAID); Z79.51 Long term (current) use of inhaled steroids; Z72.89 Other problems related to lifestyle
CPT/HCPCS: 45378; 81025; J7120

== ENCOUNTER 2021-08-23 12:50 | Emergency (ER) | payer MEDICAID ==
[2021-08-23 12:57] VITALS: BP 140/90
--- NOTE | 2021-08-23 13:56 | XRAY Report ---
PROCEDURE: Finger(s) RT INDICATIONS: Trauma TECHNIQUE: AP hand, 2 views of the second finger(s) acquired. COMPARISON: None FINDINGS: Bones: No fractures or dislocations. No suspicious bony lesions. Soft tissues: No suspicious soft tissue calcifications. IMPRESSION: No second finger fracture or dislocation. No gross soft tissue abnormality. Reviewed by: Diomedes Christopher MD on 08/23/2021 1:55 PM [facility] Approved by: Diomedes Christopher MD on 08/23/2021 1:55 PM [facility] Station ID: [id number]
--- NOTE | 2021-08-23 14:14 | ED Physician Documentation ---
PD HPI UPPER EXT INJURY - Stated complaint Stated Complaint: RT FINGER INJURY INDEX - Chief complaint Chief Complaint: Ext Problem - History obtained from History obtained from: Patient - History of Present Illness Location: Right, Finger (index) Type of injury: Blunt / blow Where injury occurred: Home Timing - onset: How many days ago (6) Timing - duration: Days (6) Timing - details: Abrupt onset, Still present Improved by: Rest, Immobilization Worsened by: Moving, Palpating Associated symptoms: No: Weakness, Numbness, Tingling, Swelling Contributing factors: No: Anticoagulated Similar symptoms before: Diagnosis (finger sprain) Recently seen: Not recently seen - Additonal information Additional information: 51-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 She does not have any redness or significant swelling. She has been putting her finger into a splint and this seems to help. 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 : None HEENT: Other Psych: Depression, Anxiety Musculoskeletal: Osteoarthritis, Other Derm: None - Past Surgical History Past Surgical History: Yes Ortho: Arthroscopic surgery, Other - Present Medications Home Medications: Ambulatory Orders Medication Instructions Recorded Confirmed Cyclobenzaprine [Flexeril] 10 mg PO TID PRN #20 tablet 07/31/18 07/31/20 Albuterol Sulfate [Proair Hfa 1 - 2 puffs INH Q4H PRN 05/26/19 07/31/20 Inhaler] Ondansetron Odt [Zofran Odt] 4 mg TL Q6H PRN #10 tablet 06/16/20 07/31/20 polyethylene glycoL 3350 [Miralax] 17 gm PO DAILY #14 packet 06/16/20 07/31/20 Ibuprofen [Motrin] 600 mg PO Q6H PRN 07/31/20 07/31/20 Progesterone, Micronized 100 mg PO DAILY 07/31/20 07/31/20 [Progesterone] - Allergies Allergies/Adverse Reactions: Allergies Allergy/AdvReac Type Severity Reaction Status Date / Time morphine Allergy Anaphylaxis Verified 11/11/21 12:53 - Social History Does the pt smoke?: No Smoking Status: Never smoker Does the pt drink ETOH?: No Does the pt have substance abuse?: Yes - Immunizations Immunizations are current?: Yes - POLST Patient has POLST: No PD ED PE NORMAL - Vitals Vital signs reviewed: Yes (Hypertensive) - General General: Alert and oriented X 3, No acute distress, Well developed/nourished - HEENT HEENT: Atraumatic, PERRL, EOMI - Respiratory Respiratory: No respiratory distress - Derm Derm: Normal color, Warm and dry, No rash - Extremities Extremities: No deformity, No edema, Other (mild tenderness to the dorsum of the right index over the PIP. ) - Neuro Neuro: Alert and oriented X 3, supervisor inspection room 2-12 intact, No motor deficit, No sensory deficit, Normal speech Eye Opening: Spontaneous Motor: Obeys Commands Verbal: Oriented GCS Score: 15 - Psych Psych: Normal mood, Normal affect Results - Vitals Vitals: Vital Signs - 24 hr 08/23/21 12:54 Temperature 36.5 C Heart Rate 88 Respiratory 16 Rate Blood Pressure 140/90 H O2 Saturation 100 Oxygen O2 Source Room air - Rads (name of study) fingers Radiology: Prelim report reviewed (Impression: No significant fracture or dislocation. No gross soft tissue abnormality.), EMP read indepedently, See rad report PD MEDICAL DECISION MAKING - ED course Complexity details: considered differential, d/w patient ED course: 51-year-old female with a history of Aym-Danlos syndrome has sprained her right index finger she is placed into a splint that she has herself. She is instructed to wear this continuously for 1 to 2 months. Departure - Departure Disposition: 01 Home, Self Care Clinical Impression: Sprain of right index finger Qualifiers: Encounter type: initial encounter Sprain of finger site: interphalangeal joint Qualified Code(s): S63.630A - Sprain of interphalangeal joint of right index finger, initial encounter Condition: Stable Instructions: ED Sprain Finger Follow-Up: Callie Foreman ND [Primary Care Provider] - Humberto Whittignton MD [Provider Admit Priv/Credential] - Comments: Today it appears you have sprained your finger and this usually includes stretching ligaments that are already loose. The recommendation is to put this into an immobilizer to approximate the torn portions of the ligament so that they heal by scarring. This may take up to 2 months. I have given you the name of an orthopedic doctor to follow-up if necessary. Discharge Date/Time: 08/23/21 14:44
== END 2021-08-23 14:44 | disposition home or self-care (01) ==
LOC: ED 12:50
DX: S63.630A Sprain of interphalangeal joint of right index finger, initial encounter (principal); W23.1XXA Caught, crushed, jammed, or pinched between stationary objects, initial encounter; Y93.E9 Activity, other interior property and clothing maintenance; Y92.9 Unspecified place or not applicable; Q79.60 Ehlers-Danlos syndrome, unspecified; Z79.52 Long term (current) use of systemic steroids; Z79.899 Other long term (current) drug therapy
CPT/HCPCS: 99282; 99283

== ENCOUNTER 2021-10-31 10:04 | Outpatient (CLI) | payer MEDICAID ==
--- NOTE | 2021-10-31 10:51 | XRAY Report ---
PROCEDURE: Wrist 4 View LT INDICATIONS: PAIN IN LEFT WRIST TECHNIQUE: 4 views of the wrist were acquired. COMPARISON: None. FINDINGS: BONES: No acute, displaced fracture or dislocation. The carpal bones are normally aligned. SOFT TISSUES: No focal abnormality. IMPRESSION: 1.No acute osseous abnormality. Reviewed by: Sj Moreau MD on 10/31/2021 10:50 AM [facility] Approved by: Sj Moreau MD on 10/31/2021 10:50 AM [facility] Station ID: [id number]
== END 2021-10-31 10:05 | disposition home or self-care (01) ==
LOC: DI 10:04
PROVIDERS: ATTEND Naturopath
DX: M25.532 Pain in left wrist (principal)

== ENCOUNTER 2022-11-21 08:00 | Outpatient (CLI) | payer MEDICAID ==
--- NOTE | 2022-11-21 18:27 | XRAY Report ---
PROCEDURE: Hand 3 View LT INDICATIONS: LEFT HAND 2ND AND 3RD FINGER PAIN TECHNIQUE: 3 views of the hand(s) acquired. COMPARISON: None FINDINGS: Bones: No fractures or dislocations. No suspicious bony lesions. Soft tissues: No suspicious soft tissue calcifications. IMPRESSION: No visualized acute fracture or dislocation. However, occult injury cannot be excluded. Recommend nilo rt interval imaging follow-up in 7-10 days as clinically indicated for additional evaluation. Reviewed by: Elza Harrington MD on 11/21/2022 6:26 PM [facility] Approved by: Elza Harrington MD on 11/21/2022 6:26 PM [facility] Station ID: [id number]
== END 2022-11-21 23:59 | disposition home or self-care (01) ==
LOC: DI.S 08:00
PROVIDERS: ATTEND Physician Assistant Medical
DX: M79.645 Pain in left finger(s) (principal); S63.273A Dislocation of unspecified interphalangeal joint of left middle finger, initial encounter; S63.271A Dislocation of unspecified interphalangeal joint of left index finger, initial encounter

== ENCOUNTER 2023-07-22 08:00 | Outpatient (CLI) | payer MEDICAID ==
--- NOTE | 2023-07-22 17:22 | XRAY Report ---
PROCEDURE: Hand 3 View LT INDICATIONS: LEFT HAND PAIN TECHNIQUE: 3 views of the hand(s) acquired. COMPARISON: 11/21/2022 FINDINGS: Bones: No fractures or dislocations. No suspicious bony lesions. Soft tissues: No suspicious soft tissue calcifications. IMPRESSION: No acute bony abnormality. If pain persists with conservative management, consider repeat radiographs in 10-14 days or cross-sectional imaging. Reviewed by: Jose Cagle MD on 07/22/2023 5:21 PM PDT Approved by: Jose Cagle MD on 07/22/2023 5:21 PM PDT Station ID: [id number]
--- NOTE | 2023-07-22 17:25 | XRAY Report ---
PROCEDURE: Wrist 4 View LT INDICATIONS: LEFT WRIST PAIN TECHNIQUE: 4 views of the wrist were acquired. COMPARISON: 07/11/2023 FINDINGS: Bones: No fractures or dislocations. No suspicious bony lesions. Soft tissues: No suspicious soft tissue calcifications . IMPRESSION: No acute bony abnormality. If there is anatomic snuff box tenderness, consider wrist immobilization a nd repeat radiographs in 10-14 days or cross-sectional imaging now. If pain persists with conservativ e management, consider repeat radiographs in 10-14 days or cross-sectional imaging. Reviewed by: Jose Cagle MD on 07/22/2023 5:23 PM PDT Approved by: Jose Cagle MD on 07/22/2023 5:23 PM PDT Station ID: [id number]
== END 2023-07-22 23:59 | disposition home or self-care (01) ==
LOC: DI.WOS 08:00
PROVIDERS: ATTEND Physician Assistant Surgical
DX: M25.532 Pain in left wrist (principal); M79.645 Pain in left finger(s)

== ENCOUNTER 2024-05-04 10:02 | Emergency (ER) | payer MEDICAID, OTHER ==
[2024-05-04 10:33] VITALS: O2SAT 100
--- NOTE | 2024-05-04 11:05 | XRAY Report ---
PROCEDURE: Shoulder 2+V RT INDICATIONS: trauma TECHNIQUE: 3 views of the shoulder were acquired. COMPARISON: None. FINDINGS: Bones: Mild acromioclavicular and glenohumeral degenerative changes. There is no acute displaced fra cture or dislocation. Soft tissues: No suspicious calcifications. IMPRESSION: No acute traumatic abnormality identified. Mild degenerative changes. If there is high concern for occult injury, consider repeat radiography or cross-sectional imaging. Reviewed by: Cezar Chairez MD on 05/04/2024 11:03 AM PDT Approved by: Cezar Chairez MD on 05/04/2024 11:03 AM PDT Station ID: [id number]
[2024-05-04] MEDS ORDERED: ACETAMINOPHEN 500 MG TABLET PO STA (11:38)
[2024-05-04] MEDS: KETOROLAC 30 MG/ML VIAL IM STA (11:45)
[2024-05-04] MEDS: ACETAMINOPHEN 500 MG TABLET PO STA (11:46)
--- NOTE | 2024-05-04 11:53 | ED Physician Documentation ---
PD HPI UPPER EXT INJURY - Stated complaint Stated Complaint: FALL, RT WRIST/SHOULDER INJ - Chief complaint Chief Complaint: Trauma Ext - Additonal information Additional information: 54-year-old female with Amy-Danlos syndrome presents emerged part for right shoulder pain. 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 She has numbness and tingling to her right index finger and says that she is having quite a bit of pain to her right shoulder. She tried to follow-up with her corporate communications specialist yesterday who she is well-established with and they sent her to the emergency department because she needs to fill out L&I paperwork. She did not hit her head she is not on any blood thinners she has full range of motion to right shoulder but she continuously says that it feels like it is going to fall out of socket. 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 : None HEENT: Other Psych: Depression, Anxiety Musculoskeletal: Osteoarthritis, Other Derm: None - Past Surgical History Past Surgical History: Yes Ortho: Arthroscopic surgery, Other - Present Medications Home Medications: Ambulatory Orders Medication Instructions Recorded Confirmed Cyclobenzaprine [Flexeril] 10 mg PO TID PRN #20 tablet 07/31/18 07/31/20 Albuterol Sulfate [Proair Hfa 1 - 2 puffs INH Q4H PRN 05/26/19 07/31/20 Inhaler] Ondansetron Odt [Zofran Odt] 4 mg TL Q6H PRN #10 tablet 06/16/20 07/31/20 polyethylene glycoL 3350 [Miralax] 17 gm PO DAILY #14 packet 06/16/20 07/31/20 Ibuprofen [Motrin] 600 mg PO Q6H PRN 07/31/20 07/31/20 Progesterone, Micronized 100 mg PO DAILY 07/31/20 07/31/20 [Progesterone] HYDROcod/ACETAM 5/325 [[place] 5/325] 1 tab PO Q8HR #10 tab 07/11/23 - Allergies Allergies/Adverse Reactions: Allergies Allergy/AdvReac Type Severity Reaction Status Date / Time morphine Allergy Anaphylaxis Verified 05/04/24 10:23 - Social History Does the pt smoke?: No Smoking Status: Never smoker Does the pt drink ETOH?: No Does the pt have substance abuse?: Yes - Immunizations Immunizations are current?: Yes - POLST Patient has POLST: No PD ED PE NORMAL - Vitals Vital signs reviewed: Yes - General General: Alert and oriented X 3, No acute distress, Well developed/nourished - Extremities Extremities: No deformity, No edema, Other (Right shoulder: Tenderness with palpation to the anterior aspect tenderness with abduction adduction. CMS intact mild paresthesias to second finger. Strong radial pulse.) - Psych Psych: Normal mood Results - Vitals Vitals: Vital Signs - 24 hr 05/04/24 05/04/24 10:20 12:10 Temperature 36.4 C L Heart Rate 69 57 L Respiratory 20 20 Rate Blood Pressure 120/69 128/82 H O2 Saturation 100 100 Oxygen O2 Source Room air - Rads (name of study) Right shoulder x-ray Relevant Findings:: Final report received, EMP independent interpretation of test, Other (No acute trauma or abnormal findings to right shoulder there is mild degenerative changes.) PD Medical Decision Making - ED course ED course: 54-year-old female presents emergency department for right shoulder pain. Patient says that she has an corporate communications specialist that she is able to follow-up with outpatient but they sent her to the emergency department to fill out L&I paperwork because this is not something they are able to do. X-rays are complete for further evaluation she does not appear to have a dislocation or any acute bony abnormalities or findings. She could have a partial ligament tear of her right shoulder she is placed in a sling and told to still use her shoulder periodically throughout the day to avoid for her to get overly frozen and told alternate between Tylenol and Aleve for pain and discomfort she is given a Toradol shot as well as 1000 g of Tylenol here in the emergency department and told to follow-up with her orthopedic surgeon outpatient. L&I paperwork has been complete. All questions have been answered patient is safe for discharge return precautions given. Departure - Departure Disposition: 01 Home, Self Care Clinical Impression: Sprain of right shoulder Qualifiers: Encounter type: initial encounter Instructions: ED Immobilizer Shoulder, ED Sling Comments: Thank you for trusting us with your care. We have completed x-rays of your right shoulder and you do not appear to have any dislocation or fractures in y our right shoulder. As we discussed I think would benefit from following up with your corporate communications specialist for further evaluation. We have placed you in a sling make sure that you are taking it off periodically and still using your right shoulder is that it does not lock up on you. I recommend alternating between Tylenol and Aleve you can take 1000 mg of Tylenol every 8 hours and 500 mg of Aleve every 12 hours. Ice frequently throughout the day 20 minutes on 1 hour off. Please come back and if you are starting to notice any worsening symptoms or other emergent concerning symptoms. Wishing a speedy recovery. Forms: PCP List Discharge Date/Time: 05/04/24 12:12
[2024-05-04 12:22] VITALS: BP 128/82
== END 2024-05-04 12:12 | disposition home or self-care (01) ==
LOC: ED 10:02
DX: S43.401A Unspecified sprain of right shoulder joint, initial encounter (principal); X50.9XXA Other and unspecified overexertion or strenuous movements or postures, initial encounter; Y99.0 Civilian activity done for income or pay; Q79.60 Ehlers-Danlos syndrome, unspecified
CPT/HCPCS: 73030; 96372; 99283; A9270; 1040M

== ENCOUNTER 2024-06-17 15:23 | Outpatient (CLI) | payer OTHER, MEDICAID ==
--- NOTE | 2024-06-18 08:16 | XRAY Report ---
PROCEDURE: Shoulder 1V RT INDICATIONS: RIGHT SHOULDER PAIN TECHNIQUE: Axillary view of the right shoulder COMPARISON: Right shoulder x-ray 05/04/2024 FINDINGS: No acute fracture or dislocation in the axillary view. No significant posterior displacement of the h umeral head relative to the glenoid. IMPRESSION: No acute fracture or dislocation of the right shoulder on the axillary view. Reviewed by: Thierno Gamble MD on 06/18/2024 8:14 AM PDT Approved by: Thierno Gamble MD on 06/18/2024 8:14 AM PDT Station ID: [id number]
== END 2024-06-17 15:24 | disposition home or self-care (01) ==
LOC: DI 15:23
PROVIDERS: ATTEND Physician Assistant Surgical
DX: M25.511 Pain in right shoulder (principal)